=== PATIENT | female | born 1940 | race Caucasian/White ===

== ENCOUNTER 2019-12-01 18:29 | Emergency (ER) | payer MEDICARE, OTHER ==
[~2019-12-01] VITALS: Ht 154 cm; Wt 67.3 kg
[~2019-12-01 18:29] MED LIST: NITR-65 PO; ONDAN4ODT PO; PNT40TEC PO
--- NOTE | 2019-12-01 18:40 | ED Fall/Injury ---
General Chief Complaint: Trauma-Non Activation Stated Complaint: FALL - FACIAL LACERATION, LT ARM PAIN Source: patient History of Present Illness Date Seen by Provider: Dec 01, 2019 Time Seen by Provider: 18:40 Initial Comments 79-year-old female presenting after having a fall off of her porch. She had hit her face and left arm. She denies any loss of consciousness. She has no numbness or tingling. She has no change in her vision. She has a laceration to her left eyebrow and to the left palm of her hand. She has increased pain to her left arm especially in the elbow and hand. Allergies and Home Medications Allergies Coded Allergies: No Known Drug Allergies (Unverified , 02/11/13) Home Medications Hydrocodone Bit/Acetaminophen 1 Tab Tab, 1 EACH PO Q8H PRN for PAIN-SEVERE (8-10) Prescribed by: SUKHDEEP MC on 12/01/19 2204 Nitrofurantoin/Nitrofuran Mac 100 Mg Capsule, 1 EACH PO BID FOR INFECTION Prescribed by: STEPHANIE DIAZ on 02/11/13 1810 Ondansetron Hcl 4 Mg Tab, 4 MG PO Q4H FOR NAUSEA AND VOMITING Prescribed by: STEPHANIE DIAZ on 02/11/13 174 Pantoprazole Sodium 40 Mg Tablet.dr, 1 TAB PO DAILY Prescribed by: STEPHANIE DIAZ on 02/11/13 174 Patient Home Medication List Home Medication List Reviewed: Yes Review of Systems Review of Systems Constitutional: No chills, No fever Eyes: Denies Vision Changes Ears, Nose, Mouth, Throat: denies ear pain, denies ear discharge, denies nose pain, denies nose discharge, denies epistaxis, denies mouth swelling, denies loose teeth Respiratory: No cough, No short of breath Cardiovascular: No chest pain, No syncope Gastrointestinal: No nausea, No vomiting Genitourinary: No dysuria, No hematuria Musculoskeletal: joint pain (left elbow, hand) Skin: other (lacerations to left eyebrown and left hand) Psychiatric/Neurological: Headache (left face and head where she hit and has laceration) Past Xpuejxq-Wuwkvu-Relvkw Hx Past Med/Social Hx: Reviewed Nursing Past Med/Soc Hx Immunizations Up To Date Date of Pneumonia Vaccine: Apr 12, 2012 Past Medical History Respiratory: Yes Chronic Bronchitis Gastroesophageal Reflux, Diverticulosis Arthritis, Back Injury Hypothyroidsim Double Vision Physical Exam Vital Signs Vital Signs - First Documented 12/01/19 12/01/19 18:38 22:06 Temp 36.7 Pulse 86 Resp 16 B/P (MAP) 148/86 (106) Pulse Ox 91 O2 Delivery Room Air Capillary Refill : Height, Weight, BMI Height: '" Weight: lbs. oz. 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, alert, normal mood/affect, oriented x 3 Skin: normal color, warm/dry, other (laceration to left palm at base of 6th finger) Amina Coma Score Best Eye Response: (4) Open Spontaneously Best Verbal Response: (5) Oriented Best Motor Response: (6) Obeys Commands Amina Total: 15 Procedures/Interventions Wound Location: Face (left eyebrow) Wound Length (cm): 2.8 Wound's Depth, Shape: stellate, contused tissue, sub Q Wound Explored: clean Anesthesia: 1% Lidocaine (added additional lidocaine after the LET had been left in place) Volume Anesthetic (ccs): 8 Suture: Prolene Suture Size: 5-0 Number of Sutures: 8 Layer Closure?: 1 Sterile Dressing Applied?: Yes Progress After obtaining informed consent from the patient the wound was being cleaned to remove the LET numbing medicine. However the patient was complaining of pain so 1% plain lidocaine was also injected. Then the wound was scrubbed with chlorhexidine surgical soap and sterile water. The wound edges were approximated using 5-0 Prolene. A total of 8 simple interrupted stitches were placed. Patient tolerated this well without any immediate complication. Counseled on follow-up and return precautions with the stitches out in 5-7 days. Wound Location: Upper Extremities (left palm) Wound Length (cm): 2.3 Wound's Depth, Shape: flap, sub Q Wound Explored: clean Anesthesia: 1% Lidocaine Volume Anesthetic (ccs): 6 Suture: Ethlion Suture Size: 4-0 Number of Sutures: 7 Layer Closure?: 1 Sterile Dressing Applied?: Yes Progress After obtaining informed consent from the patient that her wound was anesthetized with 1% plain lidocaine. It was then scrubbed with chlorhexidine and sterile gauze. The wound edges were approximated with 4-0 Ethilon using simple interrupted stitches for a total of 7 stitches. Patient tolerated this well without any immediate complication. Counseled on follow-up and return precautions. Progress/Results/Core Measures Results/Orders My Orders Orders - SUKHDEEP MC MD Elbow 3 View Left (12/01/19 18:46) Hand 3 View Left (12/01/19 18:51) Shoulder 2 View Left (12/01/19 18:51) Ct Head/Neck Wo (12/01/19 18:51) Let Solution (Let Solution) (12/01/19 18:53) Dipht,Pertuss(Acell),Tet Adult (Boostrix (12/01/19 19:00) Lidocaine 1% Inj 20 Ml (Xylocaine 1% Inj (12/01/19 19:56) Suture Set At Bedside (12/01/19 19:56) Rx-Hydrocodone/Apap 5-325 Mg (Rx-Vicodin (12/01/19 21:45) Ice: Apply To Affected Area (12/01/19 22:05) Medications Given in ED Current Medications Medications Dose Ordered Sig/Michael Route Start Time Stop Time Status Last Admin Dose Admin Diphtheria/ Tetanus/Acell Pertussis 0.5 ml ONCE ONCE IM 12/01/19 19:00 12/01/19 19:01 DC 12/01/19 20:06 0.5 ML Vital Signs/I&O 12/01/19 12/01/19 18:38 22:06 Temp 36.7 Pulse 86 81 Resp 16 16 B/P (MAP) 148/86 (106) 126/88 Pulse Ox 91 92 O2 Delivery Room Air Progress Progress Note #1: Progress Note Obtain imaging of her left hand, elbow, shoulder. CT of the head and cervical spine. Updated her tetanus shot. Applied let to the wound on her left eyebrow. Progress Note #2: Progress Note Updated patient and family that the CT head and cervical spine did not show any acute significant abnormalities. The shoulder was intact but she does have a fracture of her left humerus and left fifth metacarpal.. The lacerations and then place her in a splint and sling for the left arm. Counseled on follow-up and return precautions. The stitches need to come out in 5-7 days on the face a nd a little over 2 weeks for the hand. Diagnostic Imaging Diagonstic Imaging: Xray Plain Films/CT/US/NM/MRI: elbow Comments NAME: ERLINDA [facility]NH [facility] REC#: [id number] PT STATUS: REG ER : 1940 PHYSICIAN: SUKHDEEP MC MD ADMIT DATE: 12/01/19/ER FS Draft Date of Exam:12/01/19 ELBOW 3 VIEW LEFT INDICATION: Fall. EXAMINATION: Three views of the left elbow were obtained. FINDINGS: There is a nondisplaced fracture through the medial humeral epicondyle. There are degenerative changes in the elbow. There appears to be an elbow joint effusion. There is no other fracture. IMPRESSION: 1. Nondisplaced transverse fracture through the medial humeral epicondyle. 2. 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 Dictated on workstation # [id number] Dict: 12/01/191912 Trans: 12/01/191914 [facility] [id number] Interpreted by: CHRISTOPHER SARMIENTO MD Electronically signed by: Diagonstic Imaging: Xray Plain Films/CT/US/NM/MRI: hand Comments [facility], [place] NAME: ERLINDA [facility]YNH [facility] REC#: [id number] PT STATUS: REG ER : 1940 PHYSICIAN: SUKHDEEP MC MD ADMIT DATE: 12/01/19/ER FS Draft Date of Exam:12/01/19 HAND 3 VIEW LEFT INDICATION: Pain after fall. EXAMINATION: Three views of the left hand were obtained. FINDINGS: Bones are osteopenic. There are degenerative changes in the wrist as well as the DIP and PIP joints. There is no fracture or dislocation. Soft tissues are unremarkable. IMPRESSION: Osteopenia and arthritic change, as described, without acute fracture. Dictated on workstation # [id number] Dict: 12/01/191913 Trans: 12/01/191915 [facility] [id number] Interpreted by: CHRISTOPHER SARMIENTO MD Electronically signed by: Christinegonstic Imaging: Xray Plain Films/CT/US/NM/MRI: other (shoulder ) Comments [facility], [place] NAME: ERLINDA [facility]YNH [facility] REC#: [id number] PT STATUS: REG ER : 1940 PHYSICIAN: SUKHDEEP MC MD ADMIT DATE: 12/01/19/ER FS Draft Date of Exam:12/01/19 SHOULDER 2 VIEW LEFT INDICATION: Pain after fall. EXAMINATION: Two views of the left shoulder were obtained. FINDINGS: Bones are osteopenic. There is arthrosis of the acromioclavicular joint. Left lung is clear. There is no fracture or dislocation. IMPRESSION: Osteopenia and degenerative change without acute fracture or dislocation. Dictated on workstation # [id number] Dict: 12/01/191918 Trans: 12/01/191920 E [id number] Interpreted by: CHRISTOPHER SARMIENTO MD Electronically signed by: Christinegonstic Imaging: CT Plain Films/CT/US/NM/MRI: c-spine, head Comments [facility], [place] NAME: ERLINDA [facility]NH [facility] REC#: [id number] PT STATUS: REG ER : 1940 PHYSICIAN: SUKHDEEP MC MD ADMIT DATE: 12/01/19/ER FS Draft Date of Exam:12/01/19 CT HEAD/NECK WO PROCEDURE: CT head and neck without contrast. TECHNIQUE: Contiguous axial images were obtained from the skull base through the vertex. Noncontrast axial images were then obtained of the soft tissue of the neck. Auto Exposure Controls were utilized during the CT exam to meet ALARA standards for radiation dose reduction. INDICATION: Fall with head and neck pain. FINDINGS: There is prominence of the ventricles and sulci. There is some chronic microvascular ischemic disease. There is no hydrocephalus. There is no midline shift. There is no mass, hemorrhage or extra-axial fluid collection. Calvarium is intact. Sinuses and mastoid air cells are clear. The alignment of the cervical spine is normal. The vertebral body heights are well maintained. There is no fracture or traumatic subluxation. There are mild degenerative changes. Prevertebral soft tissues are within normal limits. There appears to be some focal pneumonitis in the left lung apex. IMPRESSION: 1. No acute intracranial abnormality. There is atrophy and moderate chronic microvascular ischemic disease. 2. Mild cervical spondylosis without acute fracture or traumatic subluxation. 3. Findings suspect for some focal pneumonitis in the left lung apex. Dictated on workstation # [id number] Dict: 12/01/191925 Trans: 12/01/191930 [facility] [id number] Interpreted by: CHRISTOPHER SARMIENTO MD Electronically signed by: Departure Impression Primary Impression: Laceration of left eyebrow without complication Qualified Codes: S01.112A - Laceration without foreign body of left eyelid and periocular area, initial encounter Additional Impressions: Laceration of left palm without complication Qualified Codes: S61.412A - Laceration without foreign body of left hand, initial encounter Fracture of fifth metacarpal bone of left hand Qualified Codes: S62.347A - Nondisplaced fracture of base of fifth metacarpal bone, left hand, initial encounter for closed fracture Closed fracture of humerus, medial epicondyle, left Qualified Codes: S42.445A - Nondisplaced fracture (avulsion) of medial epicondyle of left humerus, initial encounter for closed fracture Fall at home Qualified Codes: W19.XXXA - Unspecified fall, initial encounter; Y92.009 - Unspecified place in unspecified non-institutional (private) residence as the place of occurrence of the external cause Disposition: 01 HOME, SELF-CARE Condition: Stable Departure-Patient Inst. Decision time for Depature: 22:00 Referrals: ALVARO HUTSON MD (PCP/Family) Primary Care Physician EFFIE CA MD Patient Instructions: Elbow Fracture (DC), Hand Fracture (DC), How to Use a Shoulder Sling, Laceration Repair With Stitches (DC), SPLINT CARE Add. Discharge Instructions: Have the stitches on face removed in 5-7 days. Stitches on hand removed in about 2 weeks. Follow up with Orthopedics about the fracture of the elbow and the left hand. Wear the splint and keep it clean, dry and elevated to help with pain and swelling Milo with Orthopedics is here at [facility], his number is [phone] You may also call Dr. Ca in [place] about follow up with him. Use ice 20-30 minutes every few hours as needed to help with pain and swelling and bruising. All discharge instructions reviewed with patient and/or family. Voiced understanding. Scripts Hydrocodone Bit/Acetaminophen (Hydrocodone/Acetaminophen 5/325mg Tablet) 1 Tab Tab 1 EACH PO Q8H PRN for PAIN-SEVERE (8-10) MDD 10 for 5 Days, #15 TAB 0 Refills Prov: SUKHDEEP MC MD 12/01/19 SUKHDEEP MC MD Dec 01, 2019 18:40
[2019-12-01] MEDS ORDERED: L.E.T. SYRINGE 5 ML TOP STA (18:53)
[2019-12-01] MEDS ORDERED: TETANUS,DIPTH,PERTUSS P/F (BOOSTRIX) 0.5 ML VIAL IM ONE (19:00)
--- NOTE | 2019-12-01 19:15 | Diagnostic Imaging Report ---
INDICATION: Fall. EXAMINATION: Three views of the left elbow were obtained. FINDINGS: There is a nondisplaced fracture through the medial humeral epicondyle. There are degenerative changes in the elbow. There appears to be an elbow joint effusion. There is no other fracture. IMPRESSION: 1. Nondisplaced transverse fracture through the medial humeral epicondyle. 2. 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 Dictated by: Dictated on workstation # [id number]
--- NOTE | 2019-12-01 19:16 | Diagnostic Imaging Report ---
INDICATION: Pain after fall. EXAMINATION: Three views of the left hand were obtained. FINDINGS: Bones are osteopenic. There are degenerative changes in the wrist as well as the DIP and PIP joints. There is no fracture or dislocation. Soft tissues are unremarkable. IMPRESSION: Osteopenia and arthritic change, as described, without acute fracture. Dictated by: Dictated on workstation # [id number]
--- NOTE | 2019-12-01 19:21 | Diagnostic Imaging Report ---
INDICATION: Pain after fall. EXAMINATION: Two views of the left shoulder were obtained. FINDINGS: Bones are osteopenic. There is arthrosis of the acromioclavicular joint. Left lung is clear. There is no fracture or dislocation. IMPRESSION: Osteopenia and degenerative change without acute fracture or dislocation. Dictated by: Dictated on workstation # [id number]
--- NOTE | 2019-12-01 19:31 | Diagnostic Imaging Report ---
PROCEDURE: CT head and neck without contrast. TECHNIQUE: Contiguous axial images were obtained from the skull base through the vertex. Noncontrast axial images were then obtained of the soft tissue of the neck. Auto Exposure Controls were utilized during the CT exam to meet ALARA standards for radiation dose reduction. INDICATION: Fall with head and neck pain. FINDINGS: There is prominence of the ventricles and sulci. There is some chronic microvascular ischemic disease. There is no hydrocephalus. There is no midline shift. There is no mass, hemorrhage or extra-axial fluid collection. Calvarium is intact. Sinuses and mastoid air cells are clear. The alignment of the cervical spine is normal. The vertebral body heights are well maintained. There is no fracture or traumatic subluxation. There are mild degenerative changes. Prevertebral soft tissues are within normal limits. There appears to be some focal pneumonitis in the left lung apex. IMPRESSION: 1. No acute intracranial abnormality. There is atrophy and moderate chronic microvascular ischemic disease. 2. Mild cervical spondylosis without acute fracture or traumatic subluxation. 3. Findings suspect for some focal pneumonitis in the left lung apex. Dictated by: Dictated on workstation # [id number]
[2019-12-01] MEDS ORDERED: LIDOCAINE 1% INJ 20 ML 20 ML VIAL INJ STA (19:56)
[2019-12-01] MEDS ORDERED: RX-HYDROCODONE/APAP 5/325 MG #4 TAB PK PO PRN (21:45)
[2019-12-01] MEDS ORDERED: ACHD5005 PO (22:04)
[2019-12-01 22:06] VITALS: BP 126/88
== END 2019-12-01 22:06 | disposition home or self-care (01) ==
LOC: EDUNIT# 18:29 → ER FS 18:31
DX: S01.112A Laceration without foreign body of left eyelid and periocular area, initial encounter (principal); S61.412A Laceration without foreign body of left hand, initial encounter; S62.347A Nondisplaced fracture of base of fifth metacarpal bone, left hand, initial encounter for closed fracture; S42.445A Nondisplaced fracture (avulsion) of medial epicondyle of left humerus, initial encounter for closed fracture; K21.9 Gastro-esophageal reflux disease without esophagitis; R40.2142 Coma scale, eyes open, spontaneous, at arrival to emergency department; R40.2252 Coma scale, best verbal response, oriented, at arrival to emergency department; R40.2362 Coma scale, best motor response, obeys commands, at arrival to emergency department; Z23 Encounter for immunization; W17.89XA Other fall from one level to another, initial encounter; Y92.009 Unspecified place in unspecified non-institutional (private) residence as the place of occurrence of the external cause
CPT/HCPCS: 29105; 70450; 70490; 73030; 73080; 73130; 90715

== ENCOUNTER → 2019-12-11 | Outpatient (CLI) | payer MEDICARE, OTHER ==
[~2019-12-11] MED LIST changes: +ACHD5005 PO
--- NOTE | 2019-12-11 15:06 | Diagnostic Imaging Report ---
EXAMINATION: Left elbow at 01:42 p.m. INDICATION: Follow-up fracture. FINDINGS: Four views are obtained. The prior exam of 12/01/2019 noted a transverse nondisplaced fracture of the medial epicondyle of the distal humerus. On this exam, the fracture line is again visualized and does not appear to have changed significantly. There is no other fracture or acute bony abnormality noted. The degenerative disease involving the elbow joint seen previously is again visualized and has not progressed; however, in the interval since the prior exam, soft tissue edema has developed along the posterior aspect of the proximal ulna. There also continues to be elevation of both the anterior and posterior fat pads of the elbow joint signifying that there is fluid/hemorrhage within the joint. IMPRESSION: 1. The nondisplaced fracture of the medial epicondyle seen previously is again evident and not significantly changed. There is no acute bony abnormality identified. 2. However, soft tissue edema has developed along the posterior aspect of the proximal ulna since the prior study. Dictated by: Dictated on workstation # [id number]
== END ==
LOC: RAD FS 13:19
PROVIDERS: ATTEND Nurse Practitioner
DX: S42.445D Nondisplaced fracture (avulsion) of medial epicondyle of left humerus, subsequent encounter for fracture with routine healing (principal); S42.415D Nondisplaced simple supracondylar fracture without intercondylar fracture of left humerus, subsequent encounter for fracture with routine healing
CPT/HCPCS: 73080

== ENCOUNTER → 2019-12-24 | Outpatient (CLI) | payer MEDICARE, OTHER ==
--- NOTE | 2019-12-24 09:38 | Diagnostic Imaging Report ---
INDICATION: Left elbow fracture. TECHNIQUE: AP, oblique, and lateral views of the left elbow were obtained. FINDINGS: An overlying cast is in place. The distal humeral fracture appears in anatomic alignment. Underlying degenerative changes of the elbow joint are noted. IMPRESSION: Well aligned distal humeral fracture with cast in place. Underlying degenerative findings. Dictated by: Dictated on workstation # [id number]
--- NOTE | 2019-12-24 10:33 | Diagnostic Imaging Report ---
INDICATION: 5th metacarpal fracture. AP, oblique, and lateral views of left hand are obtained and compared to 12/01/2019. FINDINGS: Overlying cast is in place. There is a fracture of the base of 5th metacarpal which is in good alignment. There are diffuse degenerative findings throughout the interphalangeal joints. IMPRESSION: Diffuse degenerative findings. Well aligned fracture base of 5th metacarpal with overlying cast in place. Dictated by: Dictated on workstation # [id number]
== END ==
LOC: RAD 08:55
PROVIDERS: ATTEND Nurse Practitioner
DX: S42.415D Nondisplaced simple supracondylar fracture without intercondylar fracture of left humerus, subsequent encounter for fracture with routine healing (principal); S62.347D Nondisplaced fracture of base of fifth metacarpal bone, left hand, subsequent encounter for fracture with routine healing
CPT/HCPCS: 73080; 73130

== ENCOUNTER → 2020-01-07 | Outpatient (CLI) | payer MEDICARE, OTHER ==
--- NOTE | 2020-01-07 12:06 | Diagnostic Imaging Report ---
INDICATION: Followup left elbow fracture. TIME OF EXAM: 9:58 AM Correlation is made with prior left elbow radiograph from 12/24/2019. The fiberglass cast has been removed. A transversely oriented lucency through the distal humerus is again noted consistent with a fracture line. Overall alignment is anatomic. The proximal radius and ulna appear to be intact. IMPRESSION: Distal humerus fracture. Fracture line remains clearly visible. Alignment is anatomic. Dictated by: Dictated on workstation # [id number]
--- NOTE | 2020-01-07 12:06 | Diagnostic Imaging Report ---
EXAMINATION: Left hand radiographs, 3 views COMPARISON: December 24, 2019. HISTORY: 79-year-old female, followup left hand fracture. FINDINGS: The previously noted fracture involving the base of the fifth metacarpal is not well seen likely relating to interval healing response. There is no identified offset of the articulating surface. There is moderate joint space loss of the first carpometacarpal joint. There is moderate joint space loss of the third metacarpophalangeal joint. There is mild to moderate osteoarthritis of the second and third distal interphalangeal joints. There is no identified bone erosion. Bone alignment is unremarkable. There is soft tissue swelling in the region of the metacarpophalangeal joints dorsally. IMPRESSION: 1. Healing response at site of prior fracture with significantly less visible fracture line. No identified offset of the articulating surface. 2. Multifocal arthritis as described above. Dictated by: Dictated on workstation # [id number]
== END ==
LOC: RAD FS 09:47
PROVIDERS: ATTEND Nurse Practitioner
DX: S62.347D Nondisplaced fracture of base of fifth metacarpal bone, left hand, subsequent encounter for fracture with routine healing (principal); S42.415D Nondisplaced simple supracondylar fracture without intercondylar fracture of left humerus, subsequent encounter for fracture with routine healing; M19.072 Primary osteoarthritis, left ankle and foot
CPT/HCPCS: 73080; 73130

== ENCOUNTER → 2020-01-21 | Outpatient (CLI) | payer MEDICARE, OTHER ==
--- NOTE | 2020-01-21 13:37 | Diagnostic Imaging Report ---
INDICATION: Followup fracture left hand. TIME OF EXAM: 1:25 PM Comparison is made with prior radiographs from 01/07/2020. Generalized demineralization is noted. A fracture previously noted at the base of the fifth metacarpal not well seen on today's study consistent with healing. Overall alignment is anatomic. No acute fracture is seen. Significant degenerative changes at the 1st CMC joint and triscaphe joint are again noted. There is interphalangeal joint degenerative change involving multiple phalanges. IMPRESSION: Chronic changes. There is a healed fracture of the proximal 5th metacarpal. No residual fracture line is seen. Alignment is anatomic. Dictated by: Dictated on workstation # [id number]
--- NOTE | 2020-01-21 13:39 | Diagnostic Imaging Report ---
INDICATION: Elbow fracture. TECHNIQUE/COMPARISON: AP, oblique, and lateral views of the left elbow were obtained with comparison made to the study of 01/07/2020. FINDINGS: There is mild increasing sclerosis about the distal humeral fracture line. Advanced degenerative findings are also present at the elbow joint with marginal spurring and possible mild irregularity of the radial head which may be related to a healing fracture as well. Otherwise, no significant change is detected. IMPRESSION: The supracondylar humeral fracture line remains visible with increasing sclerosis indicating partial healing. Irregularity of the radial head appears degenerative in nature although a healing nondisplaced fracture of the radial head is not excluded. Dictated by: Dictated on workstation # [id number]
== END ==
LOC: RAD FS 13:09
PROVIDERS: ATTEND Nurse Practitioner
DX: S42.415D Nondisplaced simple supracondylar fracture without intercondylar fracture of left humerus, subsequent encounter for fracture with routine healing (principal); S62.397D Other fracture of fifth metacarpal bone, left hand, subsequent encounter for fracture with routine healing
CPT/HCPCS: 73080; 73130

== ENCOUNTER → 2020-02-11 | Outpatient (CLI) | payer MEDICARE, OTHER ==
--- NOTE | 2020-02-11 09:24 | Diagnostic Imaging Report ---
INDICATION: Fracture for follow-up. Compared with radiograph 01/19/2020 FINDINGS: There has been resolution of joint effusion and pathologically displaced fat pads. Further new bone formation associated with healed supracondylar distal humeral fracture present. The humeral capitellar and radiocapitellar relationship stable. New bone formation about the irregular radial head has also occurred. No new fracture. No adverse development. IMPRESSION: Healed or healing distal humeral and proximal radial fractures in stable alignment. Resolution of joint effusion. No adverse development. There is background severe underlying osteoarthritis. Dictated by: Dictated on workstation # [id number]
== END ==
LOC: RAD FS 08:36
PROVIDERS: ATTEND Nurse Practitioner
DX: S42.415D Nondisplaced simple supracondylar fracture without intercondylar fracture of left humerus, subsequent encounter for fracture with routine healing (principal); X58.XXXD Exposure to other specified factors, subsequent encounter; M19.022 Primary osteoarthritis, left elbow
CPT/HCPCS: 73080

== ENCOUNTER 2020-04-20 16:37 | Emergency (ER) | payer MEDICARE, OTHER ==
[~2020-04-20] VITALS: Ht 154.9 cm; Wt 66.8 kg
--- NOTE | 2020-04-20 17:35 | ED General ---
General Chief Complaint: Oral/Throat Problems Stated Complaint: THINKS SHES BEEN EXPOSED TO COVID 19 Nursing Triage Note: Patient's son lost his voice 2-3 weeks ago, son tested for Covid-19 two weeks ago and received negative result. Patient's son states he was exposed to the of a positive case for 15 minutes two days ago. Son states he was 12 feet away from the positive case for 3 minutes. Son denies any change in his symptoms from yesterday. Patient denies any symptoms or positive contacts. Nursing Sepsis Screen: No Definite Risk History of Present Illness Date Seen by Provider: Apr 20, 2020 Time Seen by Provider: 17:34 Initial Comments Pt presents with exposure to COVID. Son was exposed to a friend who has COVID. Patient herself is not having any symptoms, no cough, no fever. Just wants to get tested. Allergies and Home Medications Allergies Coded Allergies: No Known Drug Allergies (Unverified , 02/11/13) Home Medications Hydrocodone Bit/Acetaminophen 1 Tab Tab, 1 EACH PO Q8H PRN for PAIN-SEVERE (8- 10) Prescribed by: SUKHDEEP CM on 12/01/194 Nitrofurantoin/Nitrofuran Mac 100 Mg Capsule, 1 EACH PO BID FOR INFECTION Prescribed by: STEPHANIE DIAZ on 02/11/13 1810 Ondansetron Hcl 4 Mg Tab, 4 MG PO Q4H FOR NAUSEA AND VOMITING Prescribed by: STEPHANIE DIAZ on 02/11/13 1748 Pantoprazole Sodium 40 Mg Tablet.dr, 1 TAB PO DAILY Prescribed by: STEPHANIE DIAZ on 02/11/13 1748 Patient Home Medication List Home Medication List Reviewed: Yes Review of Systems Review of Systems Constitutional: no symptoms reported EENTM: no symptoms reported Respiratory: no symptoms reported Cardiovascular: no symptoms reported Gastrointestinal: no symptoms reported Skin: no symptoms reported Psychiatric/Neurological: No Symptoms Reported Past Umvnbov-Sktyww-Pkjpmp Hx Patient Social History Alcohol Use: Denies Use Recreational Drug Use: No Smoking Status: Never a Smoker 2nd Hand Smoke Exposure: No Recent Foreign Travel: No Contact w/Someone Who Travel: No Recent Infectious Disease Expo: No Physical Abuse: No Sexual Abuse: No Mistreated: No Fear: No Immunizations Up To Date Date of Pneumonia Vaccine: Apr 12, 2012 Past Medical History Surgeries: Yes (EGD/COLONOSCOPY) Respiratory: Yes Chronic Bronchitis Cardiac: Yes Hypertension Neurological: No Genitourinary: No Gastrointestinal: Yes Gastroesophageal Reflux, Diverticulosis Musculoskeletal: Yes Arthritis, Back Injury Endocrine: Yes Hypothyroidsim Double Vision Cancer: No Psychosocial: No Integumentary: No Blood Disorders: No Physical Exam Vital Signs Vital Signs - First Documented 04/20/20 17:00 Temp 36.8 Pulse 90 Resp 18 B/P (MAP) 143/75 (97) Pulse Ox 92 O2 Delivery Room Air Capillary Refill : Less Than 3 Seconds Height, Weight, BMI Height: '" Weight: lbs. oz. kg; 27.00 BMI Method: General Appearance: No Apparent Distress, WD/WN HEENT: Moist Mucous Membranes Neck: Supple Respiratory: No Respiratory Distress Extremity: Normal Inspection Neurologic/Psychiatric: Alert, Oriented x3 Procedures/Interventions Suture Size: 4-0 Progress/Results/Core Measures Suspected Sepsis Recent Fever Within 48 Hours: No Infection Criteria Present: None New/Unexplained Altered Menta: No Sepsis Screen: No Definite Risk SIRS Temperature: Pulse: 90 Respiratory Rate: 18 Blood Pressure 143 /75 Mean: 97 Results/Orders My Orders Orders - PAULA ISSA MD Coronavirus Sars-Cov-2 So 2018 (04/20/20 17:00) Vital Signs/I&O 04/20/20 17:00 Temp 36.8 Pulse 90 Resp 18 B/P (MAP) 143/75 (97) Pulse Ox 92 O2 Delivery Room Air Capillary Refill : Less Than 3 Seconds Blood Pressure Mean: 97 Departure Impression Primary Impression: Exposure to SARS-associated coronavirus Disposition: 01 HOME, SELF-CARE Condition: Stable Departure-Patient Inst. Referrals: ALVARO HUTSON MD (PCP/Family) Primary Care Physician Patient Instructions: Coronavirus Disease 2019 (COVID-19) Tests Add. Discharge Instructions: All discharge instructions reviewed with patient and/or family. Voiced understanding. PAULA ISSA MD Apr 20, 2020 17:34
--- OUTSIDE RECORDS SUMMARY | 2020-04-20 17:35 | XMS REPORT | Continuity of Care Document ---
Author Organization Unknown Address Unknown Phone Unavailable Allergies Active Description Code Type Severity Reaction Onset Reported/Identified Relationship to Patient Clinical Status Yes No Known Drug Allergies [id number] Drug Allergy Unknown N/A 02/11/2013 Medications There is no data. Problems Date Dx Coded Attending Type Code Diagnosis Diagnosed By 12/01/2019 JESUSITA BRAVO, SUKHDEEP Thomas Ot K21.9 GASTRO-ESOPHAGEAL REFLUX DISEASE WITHOUT 12/01/2019 JESUSITA BRAVO, SUKHDEEP Thomas Ot M79.6 02 PAIN IN LEFT ARM 12/01/2019 SUKHDEEP MC MD, Ot R40.2142 COMA SCALE, EYES OPEN, SPONTANEOUS, EMR 12/01/2019 SUKHDEEP MC MD, Ot R40.2252 COMA SCALE, BEST VERBAL RESPONSE, ORIENT 12/01/2019 SUKHDEEP MC MD, Ot R40.2362 COMA SCALE, BEST MOTOR RESPONSE, OBEYS C 12/01/2019 SUKHDEEP MC MD Ot S01.112A LACERATION W/O FB OF LEFT EYELID AND PER 12/01/2019 SUKHDEEP MC MD Ot S42.445A NONDISP FX OF MEDIAL EPICONDYLE OF L HUM 12/01/2019 SUKHDEEP MC MD Ot S61.412A LACERATION WITHOUT FOREIGN BODY OF LEFT 12/01/2019 SUKHDEEP MC MD Ot S62.347A NONDISP FX OF BASE OF FIFTH METACARPAL B 12/01/2019 SUKHDEEP MC MD Ot W17.89XA OTHER FALL FROM ONE LEVEL TO ANOTHER, IN 12/01/2019 SUKHDEEP MC MD, Ot Y92.[address] [facility] 12/01/2019 SUKHDEEP MC MD, Ot Z23 ENCOUNTER FOR IMMUNIZATION 12/13/2019 JAYSON NG Ot S42.415D NONDISP SIMP SUPRCNDL FX W/O INTRCNDL FX 12/13/2019 JAYSON NG Ot S42.445D NONDISP FX OF MED EPICONDYL OF L HUMER, 01/03/2020 JAYSON NG Ot S42.415D NONDISP SIMP SUPRCNDL FX W/O INTRCNDL FX 01/03/2020 JAYSON NG Ot S42.445D NONDISP FX OF MED EPICONDYL OF L HUMER, 01/09/2020 JAYSON NG Ot M19.072 PRIMARY OSTEOARTHRITIS, LEFT ANKLE AND F 01/09/2020 JAYSON NG Ot S42.415D NONDISP SIMP SUPRCNDL FX W/O INTRCNDL FX 01/09/2020 JAYSON NG Ot S62.347D NONDISP FX OF BASE OF FIFTH METACARPAL B 01/09/2020 JAYSON NG Ot S42.415D NONDISP SIMP SUPRCNDL FX W/O INTRCNDL FX 01/09/2020 JAYSON NG Ot S42.445D NONDISP FX OF MED EPICONDYL OF L HUMER, 01/16/2020 Ot S42.415D N ONDISP SIMP SUPRCNDL FX W/O INTRCNDL FX 01/16/2020 Ot S62.347D N ONDISP FX OF BASE OF FIFTH METACARPAL B 01/23/2020 JAYSON NG Ot S42.415D NONDISP SIMP SUPRCNDL FX W/O INTRCNDL FX 01/23/2020 JAYSON NG Ot S62.397D OTH FX FIFTH [facility] BONE, LEFT HAND, SUBS FO 01/30/2020 JAYSON NG Ot M19.072 PRIMARY OSTEOARTHRITIS, LEFT ANKLE AND F 01/30/2020 JAYSON NG Ot S42.415D NONDISP SIMP SUPRCNDL FX W/O INTRCNDL FX 01/30/2020 JAYSON NG Ot S62.347D NONDISP FX OF BASE OF FIFTH METACARPAL B 02/12/2020 JAYSON NG Ot S42.415D NONDISP SIMP SUPRCNDL FX W/O INTRCNDL FX 02/12/2020 JAYSON NG Ot S62.397D OTH FX [facility] BONE, LEFT HAND, SUBS FO 02/12/2020 KING JAYSON SOSA Ot M19.022 PRIMARY OSTEOARTHRITIS, LEFT ELBOW 02/12/2020 JAYSON NG Ot S42.415D NONDISP SIMP SUPRCNDL FX W/O INTRCNDL FX 02/12/2020 BERENICEJAYSON Ot X58.XXXD EXPOSURE TO OTHER SPECIFIED FACTORS, SUB 02/13/2020 BERENICEJAYSON Ot M19.022 PRIMARY OSTEOARTHRITIS, LEFT ELBOW 02/13/2020 BERENICEJAYSON Ot S42.415D NONDISP SIMP SUPRCNDL FX W/O INTRCNDL FX 02/13/2020 BERENICEJAYSON Ot X58.XXXD EXPOSURE TO OTHER SPECIFIED FACTORS, SUB 02/18/2020 JAYSON NG Ot M19.022 PRIMARY OSTEOARTHRITIS, LEFT ELBOW 02/18/2020 BERENICEJAYSON Ot S42.415D NONDISP SIMP SUPRCNDL FX W/O INTRCNDL FX 02/18/2020 JAYSON NG Ot X58.XXXD EXPOSURE TO OTHER SPECIFIED FACTORS, SUB 02/19/2020 BERENICEJAYSON Ot M19.072 PRIMARY OSTEOARTHRITIS, LEFT ANKLE AND F 02/19/2020 JAYSON NG Ot S42.415D NONDISP SIMP SUPRCNDL FX W/O INTRCNDL FX 02/19/2020 BERNEICEJAYSON Ot S62.347D NONDISP FX OF BASE OF FIFTH METACARPAL B Procedures There is no data. Results There is no data. Encounters ACCT No. Visit Date/Time Discharge Status Pt. Type Provider Facility Loc./Unit Complaint [id number] 09/09/2019 10:10:00 09/09/2019 23:59: 59 [facility] [id number] 02/11/2020 08:36:00 23:59:59 CLS Outpatient JAYSON NG [facility] RAD FS L HUMERUS FX [id number] 01/21/2020 13:09:00 23:59:59 CLS Outpatient JAYSON NG [facility] RAD FS NONDISPLACED SUPRACONDY LAR FX W/O INTERCONDYLAR FX [id number] 01/07/2020 09:47:00 23:59:59 CLS Outpatient JAYSON NG [facility] RAD FS FRACTURE W/O INTERCONDY LAR [id number] 12/11/2019 13:19:00 23:59:59 CLS Outpatient JAYSON NG [facility] RAD FS S42.415A [id number] 12/01/2019 18:31:00 020 22:06:00 DIS Emergency JESUSITA BRAVO, SUKHDEEP Thomas [facility] ER FS FALL - FACIAL LACERATIO N, LT ARM PAIN [id number] 02/11/2013 16:00:00 013 18:32:00 DIS Emergency [id number] 12/24/2019 08:55:00 Document Registration
[2020-04-20 17:45] VITALS: BP 143/75
== END 2020-04-20 17:45 | disposition home or self-care (01) ==
LOC: EDUNIT# 16:37 → ER FS 16:38
DX: Z20.828 Contact with and (suspected) exposure to other viral communicable diseases (principal); I10 Essential (primary) hypertension; K21.9 Gastro-esophageal reflux disease without esophagitis
CPT/HCPCS: 99282; U0002; 87635

== ENCOUNTER 2021-10-01 18:29 | Emergency (ER) | payer MEDICARE, OTHER ==
[~2021-10-01] VITALS: Ht 167 cm; Wt 71.6 kg
--- NOTE | 2021-10-01 18:59 | ED GI ---
General Stated Complaint: N/V/D Source of Information: Patient Exam Limitations: No Limitations History of Present Illness Date Seen by Provider: Oct 01, 2021 Time Seen by Provider: 18:30 Initial Comments 81yoF with PMH of arthritis coming in due to an episode of vomiting that was NB/NB and nonbloody diarrhea last night going into this morning. Went out to eat pizza prior to this. She did see some red chunks in her vomit which looks exactly like the red Jell-O she had eaten prior. Has had decreased PO today. No pain anywhere including in her abdomen. Denies fever, chills, weakness, numbness, chest pain, SOB, or any other concerns. Has been taking care of a child that does have influenza B. Denies any prior history of GI bleeds, does not take NSAIDs, no blood thinners, does not drink alcohol, no history of liver disease. Has been normal since this morning. Allergies and Home Medications Allergies Coded Allergies: No Known Drug Allergies (Unverified , 02/11/13) Patient Home Medication List Home Medication List Reviewed: Yes Hydrocodone Bit/Acetaminophen (Lortab 5 Mg Tablet) 1 Tab Tab, 1 EACH PO Q8H PRN for PAIN-SEVERE (8-10) Prescribed by: SUKHDEEP MC on 12/01/192203 Nitrofurantoin/Nitrofuran Mac (Macrobid) 100 Mg Capsule, 1 EACH PO BID Prescribed by: STEPHANIE DIAZ on 02/11/13 181 Ondansetron Hcl (Zofran Oral Dissolve) 4 Mg Tab, 4 MG PO Q4H Prescribed by: STEPHANIE DIAZ on 02/11/13 174 Pantoprazole Sodium (Protonix) 40 Mg Tablet.dr, 1 TAB PO DAILY Prescribed by: STEPHANIE DIAZ on 02/11/13 1748 Review of Systems Review of Systems Constitutional: No chills, No fever EENTM: No Blurred Vision Respiratory: Denies Cough, Denies Shortness of Air Cardiovascular: Denies Chest Pain Gastrointestinal: Denies Abdominal Pain; Diarrhea, Vomiting Genitourinary: Denies Burning Musculoskeletal: no symptoms reported Skin: no symptoms reported Psychiatric/Neurological: No Symptoms Reported Endocrine: No Symptoms Reported Hematologic/Lymphatic: No Symptoms Reported All Other Systems Reviewed Negative Unless Noted: Yes Past Urdelyl-Lxlfxp-Goalmn Hx Patient Social History Tobacco Use?: No Past Medical History Surgeries: Yes (EGD/COLONOSCOPY) Respiratory: Yes Chronic Bronchitis Cardiac: Yes Hypertension Neurological: No Genitourinary: No Gastrointestinal: Yes Gastroesophageal Reflux, Diverticulosis Musculoskeletal: Yes Arthritis, Back Injury Endocrine: Yes Hypothyroidsim Double Vision Cancer: No Psychosocial: No Integumentary: No Blood Disorders: No Physical Exam Vital Signs Vital Signs - First Documented 10/01/21 18:44 Temp 37.8 Pulse 103 Resp 17 B/P (MAP) 167/84 (111) Pulse Ox 96 O2 Delivery Room Air Capillary Refill : Height/Weight/BMI Height: '" Weight: lbs. oz. kg; 27.00 BMI Method: General Appearance: WD/WN, no apparent distress HEENT: PERRL/EOMI, normal ENT inspection, pharynx normal Neck: non-tender, full range of motion, supple, normal inspection Respiratory: chest non-tender, lungs clear, normal breath sounds, no respiratory distress, no accessory muscle use Cardiovascular: regular rate, rhythm, no edema, no murmur Gastrointestinal: normal bowel sounds, non tender, soft; No distended, No guarding, No rebound Extremities: normal range of motion, non-tender, normal inspection, no pedal edema, no calf tenderness, normal capillary refill Back: normal inspection, no CVA tenderness, no vertebral tenderness Neurologic/Psychiatric: no motor/sensory deficits, alert, normal mood/affect Skin: normal color, warm/dry Lymphatic: no adenopathy Procedures/Interventions Suture Size: 4-0 Progress/Results/Core Measures Results/Orders Lab Results Laboratory Tests Test 10/01/21 19:15 10/01/21 19:18 Range/Units White Blood Count 5.2 4.3-11.0 10^3/uL Red Blood Count 4.74 3.80-5.11 10^6/uL Hemoglobin 14.7 11.5-16.0 g/dL Hematocrit 44 35-52 % Mean Corpuscular Volume 92 80-99 fL Mean Corpuscular Hemoglobin 31 25-34 pg Mean Corpuscular Hemoglobin Concent 34 32-36 g/dL Red Cell Distribution Width 12.2 10.0-14.5 % Platelet Count 196 130-400 10^3/uL Mean Platelet Volume 10.2 9.0-12.2 fL Neutrophils (%) (Auto) 81 H 42-75 % Lymphocytes (%) (Auto) 11 L 12-44 % Monocytes (%) (Auto) 7 0-12 % Eosinophils (%) (Auto) 1 0-10 % Basophils (%) (Auto) 0 0-10 % Neutrophils # (Auto) 4.2 1.8-7.8 X 10^3 Lymphocytes # (Auto) 0.6 L 1.0-4.0 X 10^3 Monocytes # (Auto) 0.4 0.0-1.0 X 10^3 Eosinophils # (Auto) 0.0 0.0-0.3 10^3/uL Basophils # (Auto) 0.0 0.0-0.1 10^3/uL Prothrombin Time 12.9 12.2-14.7 SEC INR Comment 0.9 0.8-1.4 Activated Partial Thromboplast Time 26 24-35 SEC Sodium Level 135 135-145 MMOL/L Potassium Level 4.2 3.6-5.0 MMOL/L Chloride Level 101 98-107 MMOL/L Carbon Dioxide Level 21 21-32 MMOL/L Anion Gap 13 5-14 MMOL/L Blood Urea Nitrogen 13 7-18 MG/DL Creatinine 0.82 0.60-1.30 MG/DL Estimat Glomerular Filtration Rate 67 BUN/Creatinine Ratio 16 Glucose Level 172 H 70-105 MG/DL Calcium Level 8.6 8.5-10.1 MG/DL Corrected Calcium 8.8 8.5-10.1 MG/DL Total Bilirubin 0.6 0.1-1.0 MG/DL Aspartate Amino Transf (AST/SGOT) 24 5-34 U/L Alanine Aminotransferase (ALT/SGPT) 13 0-55 U/L Alkaline Phosphatase 112 40-136 U/L Total Protein 7.1 6.4-8.2 GM/DL Albumin 3.8 3.2-4.5 GM/DL Lipase 16 8-78 U/L Influenza Type A Antigen NEGATIVE NEGATIVE Influenza Type B Antigen NEGATIVE NEGATIVE My Orders Orders - DOMINICK ESPANA MD Cbc With Automated Diff (10/01/21 19:07) Comprehensive Metabolic Panel (10/01/21 19:07) Lipase (10/01/21 19:07) Protime With Inr (10/01/21 19:07) Partial Thromboplastin Time (12/23/21 19:07) Influenza A & B Antigens (10/01/21 19:07) Lactated Ringers (Lr 1000 Ml Iv Solution (10/01/21 19:07) Pantoprazole Injection (Protonix Injecti (10/01/21 19:15) Medications Given in ED Current Medications Medications Dose Ordered Sig/Michael Route Start Time Stop Time Status Last Admin Dose Admin Pantoprazole 40 mg ONCE ONCE IV 10/01/21 19:15 10/01/21 19:16 DC 10/01/21 19:25 40 MG Vital Signs/I&O 10/01/21 18:44 Temp 37.8 Pulse 103 Resp 17 B/P (MAP) 167/84 (111) Pulse Ox 96 O2 Delivery Room Air Progress Progress Note : Progress Note 81-year-old female with above history coming in due to multiple episodes of vomiting and diarrhea. ABCs were intact and vitals were stable on presentation. Physical exam reassuring including a soft and nontender abdomen. She has no red flags for serious upper GI bleed. It does sound like the red that was in her vomit truly looks like the food that she ate and the rest of the vomit was not red or bloody. She also has not had any blood in her stools. She has not any vomiting and almost 16 hours and is well-appearing. An IV was placed and basic labs were obtained including normal electrolytes, normal kidney function, normal hemoglobin. She is given a 500 cc bolus of IV fluids given the vomiting with decreased p.o. intake today and IV Protonix. She continues to look well. I believe she likely has a short lasting GI bug which has passed. Flu test was negative. I believe she is stable for discharge with outpatient follow-up. She was sent home with strict return precautions. At the time of discharge she is completely at her baseline with no symptoms. Departure Impression Primary Impression: Vomiting and diarrhea Disposition: 01 HOME, SELF-CARE Condition: Stable Departure-Patient Inst. Referrals: ALVARO HUTSON MD (PCP/Family) Primary Care Physician Patient Instructions: Diarrhea, Adult ED, Nausea and Vomiting, Adult ED Add. Discharge Instructions: You are seen in the emergency department for vomiting and diarrhea. We did give you some fluids and an antacid. Your labs look good including normal electrolytes, your kidneys look good, and your blood counts otherwise look good. If you begin vomiting any blood or having bloody diarrhea then please call your doctor or come to the ER. Otherwise, you likely have a virus that is going around [place] currently and typically these have been passing within a day or 2. Your flu test was negative. DOMINICK ESPANA MD Oct 01, 2021 18:59
[2021-10-01] MEDS ORDERED: LACTATED RINGERS 1,000 ML IV STA (19:07)
[2021-10-01] MEDS ORDERED: PANTOPRAZOLE 40 MG (PROTONIX) VIAL IV ONE (19:15)
[2021-10-01 19:43] LABS: HEMATOCRIT 44 % (35-52); HEMOGLOBIN 14.7 g/dL (11.5-16.0); MEAN CORPUSCULAR HEMOGLOBIN 31 pg (25-34); MEAN CORPUSCULAR HGB CONC 34 g/dL (32-36); MEAN CORPUSCULAR VOLUME 92 fL (80-99); WHITE BLOOD COUNT 5.2 10^3/uL (4.3-11.0)
[2021-10-01 19:44] LABS: BASOPHILS % (AUTO) 0 % (0-10); EOSINOPHILS % (AUTO) 1 % (0-10); LYMPHOCYTES # (AUTO) 0.6 X 10^3 (1.0-4.0); LYMPHOCYTES % (AUTO) 11 % (12-44); MEAN PLATELET VOLUME 10.2 fL (9.0-12.2); MONOCYTES # (AUTO) 0.4 X 10^3 (0.0-1.0); MONOCYTES % (AUTO) 7 % (0-12); NEUTROPHILS # (AUTO) 4.2 X 10^3 (1.8-7.8); NEUTROPHILS % (AUTO) 81 % (42-75); PLATELET COUNT 196 10^3/uL (130-400)
[2021-10-01 19:45] LABS: INR 0.9 (0.8-1.4); PROTHROMBIN TIME PATIENT 12.9 SEC (12.2-14.7)
[2021-10-01 19:55] LABS: BILIRUBIN,TOTAL 0.6 MG/DL (0.1-1.0); CALCIUM 8.6 MG/DL (8.5-10.1); CREATININE SERUM 0.82 MG/DL (0.60-1.30); TOTAL PROTEIN 7.1 GM/DL (6.4-8.2)
[2021-10-01 19:56] LABS: ALBUMIN 3.8 GM/DL (3.2-4.5); POTASSIUM 4.2 MMOL/L (3.6-5.0)
[2021-10-01 20:15] VITALS: BP 125/55
== END 2021-10-01 20:15 | disposition home or self-care (01) ==
LOC: EDUNIT# 18:29 → ER FS 18:32
DX: R11.10 Vomiting, unspecified (principal); R19.7 Diarrhea, unspecified; I10 Essential (primary) hypertension; K21.9 Gastro-esophageal reflux disease without esophagitis; Z79.899 Other long term (current) drug therapy
CPT/HCPCS: 36415; 80053; 83690; 85025; 85610; 85730; 87804

== ENCOUNTER 2021-10-26 13:23 | Emergency (ER) | payer MEDICARE, OTHER ==
[~2021-10-26] VITALS: Ht 165.9 cm; Wt 68.9 kg
--- NOTE | 2021-10-26 13:47 | ED Cough/URI ---
General Chief Complaint: COVID19 Suspect/Confirmed Stated Complaint: COVID+; COUGH Source: patient Exam Limitations: no limitations History of Present Illness Date Seen by Provider: Oct 26, 2021 Time Seen by Provider: 13:27 Initial Comments 81-year-old female with past medical history of hypertension and hypothyroidism coming in due to continued cough and congestion. She said symptom started the end of September. She had a positive COVID test on October 15 and another positive on October 18. Has had continued cough and congestion which she continues to take DayQuil for. Denies really feeling short of breath, but says her nose gets too congested when she lays backwards and it makes it hard to breathe. Otherwise denying any chest pain, current shortness of breath, abdominal pain, nausea, vomiting, diarrhea, fever, chills, weakness, numbness, dysuria, rash, or any other concerns Allergies and Home Medications Allergies Coded Allergies: No Known Drug Allergies (Unverified , 02/11/13) Patient Home Medication List Home Medication List Reviewed: Yes Hydrocodone Bit/Acetaminophen (Lortab 5 Mg Tablet) 1 Tab Tab, 1 EACH PO Q8H PRN for PAIN-SEVERE (8-10) Prescribed by: SUKHDEEP MC on 12/01/192203 Nitrofurantoin/Nitrofuran Mac (Macrobid) 100 Mg Capsule, 1 EACH PO BID Prescribed by: STEPHANIE DIAZ on 02/11/131809 Ondansetron Hcl (Zofran Oral Dissolve) 4 Mg Tab, 4 MG PO Q4H Prescribed by: STEPHANIE DIAZ on 02/11/131747 Pantoprazole Sodium (Protonix) 40 Mg Tablet.dr, 1 TAB PO DAILY Prescribed by: STEPHANIE DIAZ on 02/11/13 174 Review of Systems Review of Systems Constitutional: No chills, No fever EENTM: nose congestion; No blurred vision Respiratory: cough, short of breath Cardiovascular: No chest pain Gastrointestinal: No abdominal pain, No diarrhea, No nausea, No vomiting Genitourinary: no symptoms reported Musculoskeletal: no symptoms reported Skin: no symptoms reported Psychiatric/Neurological: No Symptoms Reported Hematologic/Lymphatic: No Symptoms Reported Immunological/Allergic: no symptoms reported All Other Systems Reviewed Negative Unless Noted: Yes Past Kigxeju-Jkcicw-Lpufpq Hx Immunizations Up To Date Second COVID19 Vaccination Wale: Moderna Past Medical History Surgeries: Yes (EGD/COLONOSCOPY) Respiratory: Yes Chronic Bronchitis Cardiac: Yes Hypertension Neurological: No Genitourinary: No Gastrointestinal: Yes Gastroesophageal Reflux, Diverticulosis Musculoskeletal: Yes Arthritis, Back Injury Endocrine: Yes Hypothyroidsim Double Vision Cancer: No Psychosocial: No Integumentary: No Blood Disorders: No Physical Exam Capillary Refill : Height: '" Weight: lbs. oz. kg; 25.00 BMI Method: General Appearance: WD/WN, no apparent distress Eyes: Bilateral Eye Normal Inspection HEENT: PERRL/EOMI, normal ENT inspection, pharynx normal Neck: non-tender, full range of motion, supple, normal inspection Respiratory: chest non-tender, lungs clear, normal breath sounds, no respiratory distress, no accessory muscle use Cardiovascular: regular rate, rhythm, no edema, no murmur Gastrointestinal: normal bowel sounds, non tender, soft; No distended, No guarding, No rebound Extremities: normal range of motion, non-tender, normal inspection, no pedal edema, no calf tenderness, normal capillary refill Neurologic/Psychiatric: no motor/sensory deficits, alert, normal mood/affect Skin: normal color, warm/dry Lymphatic: no adenopathy Procedures/Interventions Suture Size: 4-0 Progress/Results/Core Measures Suspected Sepsis SIRS Temperature: Pulse: Respiratory Rate: Laboratory Tests 10/26/21 13:50: White Blood Count 8.0 Blood Pressure / Mean: Laboratory Tests 10/26/21 13:50: Creatinine 0.78, Platelet Count 244, Total Bilirubin 0.4 Results/Orders Lab Results Laboratory Tests Test 10/26/21 13:50 Range/Units White Blood Count 8.0 4.3-11.0 10^3/uL Red Blood Count 4.90 3.80-5.11 10^6/uL Hemoglobin 15.0 11.5-16.0 g/dL Hematocrit 44 35-52 % Mean Corpuscular Volume 91 80-99 fL Mean Corpuscular Hemoglobin 31 25-34 pg Mean Corpuscular Hemoglobin Concent 34 32-36 g/dL Red Cell Distribution Width 12.0 10.0-14.5 % Platelet Count 244 130-400 10^3/uL Mean Platelet Volume 10.1 9.0-12.2 fL Immature Granulocyte % (Auto) 1 % Neutrophils (%) (Auto) 81 H 42-75 % Lymphocytes (%) (Auto) 10 L 12-44 % Monocytes (%) (Auto) 7 0-12 % Eosinophils (%) (Auto) 1 0-10 % Basophils (%) (Auto) 0 0-10 % Neutrophils # (Auto) 6.5 1.8-7.8 X 10^3 Lymphocytes # (Auto) 0.8 L 1.0-4.0 X 10^3 Monocytes # (Auto) 0.5 0.0-1.0 X 10^3 Eosinophils # (Auto) 0.1 0.0-0.3 10^3/uL Basophils # (Auto) 0.0 0.0-0.1 10^3/uL Immature Granulocyte # (Auto) 0.0 0.0-0.1 10^3/uL Sodium Level 139 135-145 MMOL/L Potassium Level 3.7 3.6-5.0 MMOL/L Chloride Level 104 98-107 MMOL/L Carbon Dioxide Level 23 21-32 MMOL/L Anion Gap 12 5-14 MMOL/L Blood Urea Nitrogen 8 7-18 MG/DL Creatinine 0.78 0.60-1.30 MG/DL Estimat Glomerular Filtration Rate 77 BUN/Creatinine Ratio 10 Glucose Level 153 H 70-105 MG/DL Calcium Level 8.6 8.5-10.1 MG/DL Corrected Calcium 8.8 8.5-10.1 MG/DL Total Bilirubin 0.4 0.1-1.0 MG/DL Aspartate Amino Transf (AST/SGOT) 22 5-34 U/L Alanine Aminotransferase (ALT/SGPT) 18 0-55 U/L Alkaline Phosphatase 120 40-136 U/L Troponin I < 0.30 <0.30 NG/ML Pro-B-Type Natriuretic Peptide 166.5 H <75.0 PG/ML Total Protein 7.2 6.4-8.2 GM/DL Albumin 3.8 3.2-4.5 GM/DL My Orders Orders - DOMINICK ESPANA MD Cbc With Automated Diff (10/26/21 13:44) Comprehensive Metabolic Panel (10/26/21 13:44) Probnp Fs (10/26/21 13:44) Troponin I Fs (10/26/21 13:44) Chest 1 View Ap/Pa Only (10/26/21 13:44) Vital Signs/I&O Capillary Refill : Progress Note : Progress Note 81-year-old female with above history coming in due to increasing cough and congestion. ABCs were intact and vitals were stable on presentation. Lung sounds are clear and overall she is well-appearing. Chest x-ray unchanged from prior on my interpretation. Basic labs including cardiac biomarkers reassuring. She is tentatively day 11 of her quarantine, oxygen has been good with prolonged monitoring in the emergency department, and overall I believe she is likely going to improve soon. Given that it has been a mild COVID infection without significant illness, and that she is day 11, do not recommend any new medications at this time. She would not qualify for any type of monoclonal antibody treatments or new oral therapy for COVID. I believe she is stable for discharge with outpatient follow-up. She was sent home with strict return precautions. Diagnostic Imaging Diagonstic Imaging: Xray Comments [facility], [place] NAME: ERLINDA HUYNH [facility] REC#: [id number] PT STATUS: REG ER : 1940 PHYSICIAN: DOMINICK ESPANA MD ADMIT DATE: 10/26/21/ER FS Draft Date of Exam:10/26/21 CHEST 1 VIEW AP/PA ONLY EXAMINATION: Chest 1 view HISTORY: Shortness of breath. Cough. COMPARISON: None available. FINDINGS: The lung volumes are normal. No focal consolidation is seen. No large pleural effusion or pneumothorax is seen. The cardiomediastinal silhouette is prominent. No acute osseous abnormality is seen. IMPRESSION: 1. Cardiomegaly. No overt pulmonary edema. Dictated on workstation # [id number] Dict: 10/26/21 1358 Trans: 10/26/21 1400 [id number] [id number] Interpreted by: CLINTON OLEARY DO Electronically signed by: Departure Impression Primary Impression: COVID-19 Additional Impression: URI with cough and congestion Disposition: HOME, SELF-CARE Condition: Stable Departure-Patient Inst. Decision time for Depature: 14:41 Referrals: ALVARO HUTSON MD (PCP/Family) Primary Care Physician Patient Instructions: COVID-19 (DC) Add. Discharge Instructions: Your chest x-ray looks clear and you do not have any signs of pneumonia. Your labs are reassuring as well. Continue to take ncjn-ddr-zcbbztd medicines for cough and cold. Since your day 11 of your COVID infection, you likely will begin improving soon. Please follow-up with your regular doctor in the next several days, especially as you are exiting your quarantine. DOMINICK ESPANA MD Oct 26, 2021 13:47
--- NOTE | 2021-10-26 14:01 | Diagnostic Imaging Report ---
EXAMINATION: Chest 1 view HISTORY: Shortness of breath. Cough. COMPARISON: None available. FINDINGS: The lung volumes are normal. No focal consolidation is seen. No large pleural effusion or pneumothorax is seen. The cardiomediastinal silhouette is prominent. No acute osseous abnormality is seen. IMPRESSION: 1. Cardiomegaly. No overt pulmonary edema. Dictated by: Dictated on workstation # [id number]
[2021-10-26 14:28] LABS: EOSINOPHILS % (AUTO) 1 % (0-10); HEMATOCRIT 44 % (35-52); LYMPHOCYTES % (AUTO) 10 % (12-44); MEAN CORPUSCULAR HEMOGLOBIN 31 pg (25-34); MEAN CORPUSCULAR HGB CONC 34 g/dL (32-36); MEAN CORPUSCULAR VOLUME 91 fL (80-99); MEAN PLATELET VOLUME 10.1 fL (9.0-12.2); MONOCYTES % (AUTO) 7 % (0-12); NEUTROPHILS % (AUTO) 81 % (42-75); PLATELET COUNT 244 10^3/uL (130-400)
[2021-10-26 14:29] LABS: BASOPHILS % (AUTO) 0 % (0-10); EOSINOPHILS # (AUTO) 0.1 10^3/uL (0.0-0.3); LYMPHOCYTES # (AUTO) 0.8 X 10^3 (1.0-4.0); MONOCYTES # (AUTO) 0.5 X 10^3 (0.0-1.0); NEUTROPHILS # (AUTO) 6.5 X 10^3 (1.8-7.8)
[2021-10-26 14:36] LABS: ALANINE AMINOTRANSFERASE 18 U/L (0-55); ALBUMIN 3.8 GM/DL (3.2-4.5); ALKALINE PHOSPHATASE 120 U/L (40-136); BILIRUBIN,TOTAL 0.4 MG/DL (0.1-1.0); BUN/CREATININE RATIO 10; CALCIUM 8.6 MG/DL (8.5-10.1); CARBON DIOXIDE 23 MMOL/L (21-32); CHLORIDE 104 MMOL/L (98-107); CREATININE SERUM 0.78 MG/DL (0.60-1.30); GFR ESTIMATED 77; GLUCOSE 153 MG/DL (70-105); POTASSIUM 3.7 MMOL/L (3.6-5.0); SODIUM 139 MMOL/L (135-145); TOTAL PROTEIN 7.2 GM/DL (6.4-8.2)
[2021-10-26 14:49] VITALS: BP 130/70
== END 2021-10-26 14:49 | disposition home or self-care (01) ==
LOC: EDUNIT# 13:23 → ER FS 13:25
DX: U07.1 COVID-19 (principal); R09.81 Nasal congestion; I10 Essential (primary) hypertension; K21.9 Gastro-esophageal reflux disease without esophagitis; Z79.899 Other long term (current) drug therapy
CPT/HCPCS: 36415; 71045; 80053; 83880; 84484; 85025

== ENCOUNTER 2022-04-06 22:46 | Emergency (ER) | payer MEDICARE, OTHER ==
[~2022-04-06] VITALS: Ht 154.9 cm; Wt 69.9 kg
--- NOTE | 2022-04-06 22:50 | ED General ---
General Stated Complaint: HIGH BP,BLURRED VISION History of Present Illness Date Seen by Provider: Apr 06, 2022 Time Seen by Provider: 22:50 Initial Comments 81-year-old female presents because her vision temporarily got little blurry that is resolved. She checked her blood pressure at home and it was 180s on the first check and then 140 on the second check. Patient reports that she has just some generalized malaise feels like she has a "little bit of bronchitis going on. Patient does report that her son last week had a virus. She has a mild cough. No fever, chills, shortness of breath, chest pain, nausea or vomiting. Allergies and Home Medications Allergies Coded Allergies: No Known Drug Allergies (Unverified , 02/11/13) Patient Home Medication List Home Medication List Reviewed: Yes Hydrocodone Bit/Acetaminophen (Lortab 5 Mg Tablet) 1 Tab Tab, 1 EACH PO Q8H PRN for PAIN-SEVERE (8-10) Prescribed by: SUKHDEEP MC on 12/01/192203 Nitrofurantoin/Nitrofuran Mac (Macrobid) 100 Mg Capsule, 1 EACH PO BID Prescribed by: STEPHANIE DIAZ on 02/11/13 1810 Ondansetron Hcl (Zofran Oral Dissolve) 4 Mg Tab, 4 MG PO Q4H Prescribed by: STEPHANIE DIAZ on 02/11/13 1748 Pantoprazole Sodium (Protonix) 40 Mg Tablet.dr, 1 TAB PO DAILY Prescribed by: STEPHANIE DIAZ on 02/11/13 1748 Review of Systems Review of Systems Constitutional: No chills, No fever; malaise EENTM: see HPI, blurred vision (Now resolved) Respiratory: cough; No short of breath Cardiovascular: No chest pain, No palpitations Gastrointestinal: No abdominal pain, No nausea, No vomiting Genitourinary: no symptoms reported Musculoskeletal: no symptoms reported Skin: no symptoms reported Psychiatric/Neurological: See HPI Hematologic/Lymphatic: No Symptoms Reported Past Bnvyzqk-Udhkut-Nxtdsy Hx Immunizations Up To Date First/Initial COVID19 Vaccinat: 2020 Second COVID19 Vaccination Wale: 2020 Third COVID19 Vaccination Date: N/A Past Medical History Surgeries: Yes (EGD/COLONOSCOPY) Respiratory: Yes Chronic Bronchitis Cardiac: Yes Hypertension Neurological: No Genitourinary: No Gastrointestinal: Yes Gastroesophageal Reflux, Diverticulosis Musculoskeletal: Yes Arthritis, Back Injury Endocrine: Yes Hypothyroidsim Double Vision Cancer: No Psychosocial: No Integumentary: No Blood Disorders: No Physical Exam Vital Signs Vital Signs - First Documented 04/06/22 22:48 Temp 36.3 Pulse 75 Resp 18 B/P (MAP) 180/68 (105) Pulse Ox 95 O2 Delivery Room Air Capillary Refill : Height, Weight, BMI Height: '" Weight: lbs. oz. kg; 25.00 BMI Method: General Appearance: No Apparent Distress, WD/WN HEENT: PERRL/EOMI, Moist Mucous Membranes Respiratory: Lungs Clear, Normal Breath Sounds Cardiovascular: Regular Rate, Rhythm, No Edema Gastrointestinal: Non Tender, Soft Neurologic/Psychiatric: Alert, Oriented x3, No Motor/Sensory Deficits, Normal Mood/Affect, clinical research coordinator II-XII Norm as Tested Skin: Normal Color, Warm/Dry Procedures/Interventions Suture Size: 4-0 Progress/Results/Core Measures Suspected Sepsis SIRS Temperature: Pulse: Respiratory Rate: Laboratory Tests 04/06/22 22:55: White Blood Count 6.9 Blood Pressure / Mean: Laboratory Tests 04/06/22 22:55: Creatinine 0.93, Platelet Count 241, Total Bilirubin 0.4 Results/Orders Lab Results Laboratory Tests Test 04/06/22 22:55 04/06/22 23:20 04/06/22 23:33 Range/Units White Blood Count 6.9 4.3-11.0 10^3/uL Red Blood Count 5.10 3.80-5.11 10^6/uL Hemoglobin 15.5 11.5-16.0 g/dL Hematocrit 46 35-52 % Mean Corpuscular Volume 91 80-99 fL Mean Corpuscular Hemoglobin 30 25-34 pg Mean Corpuscular Hemoglobin Concent 34 32-36 g/dL Red Cell Distribution Width 11.9 10.0-14.5 % Platelet Count 241 130-400 10^3/uL Mean Platelet Volume 10.2 9.0-12.2 fL Immature Granulocyte % (Auto) 0 % Neutrophils (%) (Auto) 59 42-75 % Lymphocytes (%) (Auto) 29 12-44 % Monocytes (%) (Auto) 8 0-12 % Eosinophils (%) (Auto) 2 0-10 % Basophils (%) (Auto) 1 0-10 % Neutrophils # (Auto) 4.1 1.8-7.8 10^3/uL Lymphocytes # (Auto) 2.0 1.0-4.0 10^3/uL Monocytes # (Auto) 0.6 0.0-1.0 10^3/uL Eosinophils # (Auto) 0.2 0.0-0.3 10^3/uL Basophils # (Auto) 0.0 0.0-0.1 10^3/uL Immature Granulocyte # (Auto) 0.0 0.0-0.1 10^3/uL Sodium Level 137 135-145 MMOL/L Potassium Level 3.8 3.6-5.0 MMOL/L Chloride Level 102 98-107 MMOL/L Carbon Dioxide Level 25 21-32 MMOL/L Anion Gap 10 5-14 MMOL/L Blood Urea Nitrogen 12 7-18 MG/DL Creatinine 0.93 0.60-1.30 MG/DL Estimat Glomerular Filtration Rate 62 BUN/Creatinine Ratio 13 Glucose Level 121 H 70-105 MG/DL Calcium Level 9.3 8.5-10.1 MG/DL Corrected Calcium 9.2 8.5-10.1 MG/DL Magnesium Level 1.9 1.6-2.4 MG/DL Total Bilirubin 0.4 0.1-1.0 MG/DL Aspartate Amino Transf (AST/SGOT) 17 5-34 U/L Alanine Aminotransferase (ALT/SGPT) 9 0-55 U/L Alkaline Phosphatase 138 H 40-136 U/L C-Reactive Protein < 0.30 <0.50 MG/DL Total Protein 7.6 6.4-8.2 GM/DL Albumin 4.1 3.2-4.5 GM/DL Influenza Type A (RT-PCR) Not Detected Not Detecte Influenza Type B (RT-PCR) Not Detected Not Detecte SARS-CoV-2 RNA (RT-PCR) Not Detected Not Detecte Urine Color YELLOW Urine Clarity CLEAR Urine pH 5.5 5-9 Urine Specific [place] <=1.005 1.016-1.022 Urine Protein NEGATIVE NEGATIVE Urine Glucose (UA) NEGATIVE NEGATIVE Urine Ketones NEGATIVE NEGATIVE Urine Nitrite NEGATIVE NEGATIVE Urine Bilirubin NEGATIVE NEGATIVE Urine Urobilinogen 0.2 < = 1.0 MG/DL Urine Leukocyte Esterase 1+ H NEGATIVE Urine RBC (Auto) NEGATIVE NEGATIVE Urine RBC NONE /HPF Urine WBC 2-5 /HPF Urine Squamous Epithelial Cells 0-2 /HPF Urine Crystals NONE /LPF Urine Bacteria FEW H /HPF Urine Casts NONE /LPF Urine Mucus NEGATIVE /LPF Urine Culture Indicated NO My Orders Orders - JULIA HERNANDEZ DO Cbc With Automated Diff (04/06/22 22:59) Comprehensive Metabolic Panel (04/06/22 22:59) Magnesium (04/06/22 22:59) Ua Culture If Indicated (04/06/22 22:59) Influenza A And B By Pcr (04/06/22 22:59) Crp Fs (04/06/22 22:59) Covid 19 Inhouse Test (04/06/22 22:59) Chest 1 View Ap/Pa Only (04/06/22 22:59) Ed Iv/Invasive Line Start (04/06/22 22:59) Vital Signs/I&O 04/06/22 04/06/22 22:48 23:15 Temp 36.3 Pulse 75 56 Resp 18 18 B/P (MAP) 180/68 (105) 148/74 Pulse Ox 95 94 O2 Delivery Room Air Room Air Capillary Refill : Progress Note : Progress Note Patient remain asymptomatic throughout her stay. Urine has small leukocyte Estrace and small bacteria but patient is not having urinary symptoms so will await culture. Labs otherwise show no significant acute findings. Patient negative chest x-ray. Patient did state that this seems like at home when she has her symptoms her pulse rate is "low" on her machine. I discussed with her that she might want follow-up with her primary care provider and consider a Holter monitor since she did have an episode where she dropped into the high 40s and low 50s however she remained asymptomatic. That may be was causing her to feel a little bit dizzy occasionally. Patient otherwise stable and will be discharged home Departure Impression Primary Impression: Dizziness, nonspecific Disposition: 01 HOME, SELF-CARE Condition: Stable Departure-Patient Inst. Referrals: ALVARO HUTSON MD (PCP/Family) Primary Care Physician Patient Instructions: Dizziness, Adult ED Add. Discharge Instructions: Follow-up with your primary care provider for further out patient management and evaluation. Please mention to him that your heart rate sometimes reads low on your monitor. He may consider a cardiology consult. Return to ER if symptoms worsen or if you have any other concerns JULIA HERNANDEZ DO Apr 06, 2022 22:50
[2022-04-06 23:10] LABS: BASOPHILS % (AUTO) 1 % (0-10); EOSINOPHILS # (AUTO) 0.2 10^3/uL (0.0-0.3); EOSINOPHILS % (AUTO) 2 % (0-10); HEMATOCRIT 46 % (35-52); HEMOGLOBIN 15.5 g/dL (11.5-16.0); LYMPHOCYTES % (AUTO) 29 % (12-44); MEAN CORPUSCULAR HEMOGLOBIN 30 pg (25-34); MEAN CORPUSCULAR HGB CONC 34 g/dL (32-36); MEAN CORPUSCULAR VOLUME 91 fL (80-99); MEAN PLATELET VOLUME 10.2 fL (9.0-12.2); MONOCYTES # (AUTO) 0.6 10^3/uL (0.0-1.0); MONOCYTES % (AUTO) 8 % (0-12); NEUTROPHILS # (AUTO) 4.1 10^3/uL (1.8-7.8); NEUTROPHILS % (AUTO) 59 % (42-75); PLATELET COUNT 241 10^3/uL (130-400); WHITE BLOOD COUNT 6.9 10^3/uL (4.3-11.0)
[2022-04-06 23:30] LABS: ALANINE AMINOTRANSFERASE 9 U/L (0-55); ALBUMIN 4.1 GM/DL (3.2-4.5); ALKALINE PHOSPHATASE 138 U/L (40-136); BILIRUBIN,TOTAL 0.4 MG/DL (0.1-1.0); BUN/CREATININE RATIO 13; CALCIUM 9.3 MG/DL (8.5-10.1); CARBON DIOXIDE 25 MMOL/L (21-32); CHLORIDE 102 MMOL/L (98-107); CREATININE SERUM 0.93 MG/DL (0.60-1.30); GFR ESTIMATED 62; GLUCOSE 121 MG/DL (70-105); MAGNESIUM 1.9 MG/DL (1.6-2.4); POTASSIUM 3.8 MMOL/L (3.6-5.0); SODIUM 137 MMOL/L (135-145); TOTAL PROTEIN 7.6 GM/DL (6.4-8.2)
[2022-04-06 23:37] LABS: BILIRUBIN,URINE NEGATIVE (NEGATIVE); CLARITY,URINE CLEAR; COLOR,URINE YELLOW; GLUCOSE, URINE (UA) NEGATIVE (NEGATIVE); KETONES,URINE NEGATIVE (NEGATIVE); LEUKOCYTE ESTERASE ,URINE 1+ (NEGATIVE); NITRITE,URINE NEGATIVE (NEGATIVE); PH,URINE 5.5 (5-9); PROTEIN,URINE NEGATIVE (NEGATIVE)
[2022-04-06 23:46] LABS: BACTERIA,URINE FEW /HPF; SQUAMOUS EPITHELIAL CELL,UR 0-2 /HPF
[2022-04-07 00:10] VITALS: BP 146/66
--- NOTE | 2022-04-07 05:35 | Diagnostic Imaging Report ---
INDICATION: Cough Portable AP view of the chest is obtained with comparison made to the study of 10/26/2021. There has been mild worsening of cardiomegaly and pulmonary venous congestion. There is no pneumothorax. There is obscuration of the left heart border which may be due to lingular infiltrate. There is also probable hiatal hernia present. IMPRESSION: Mild worsening cardiomegaly and pulmonary venous congestion which may be due to congestive heart failure. Dictated by: Dictated on workstation # [id number]
== END 2022-04-07 00:10 | disposition home or self-care (01) ==
LOC: EDUNIT# 22:46 → ER FS 22:47
DX: R42 Dizziness and giddiness (principal); R82.998 Other abnormal findings in urine; I10 Essential (primary) hypertension; Z20.822 Contact with and (suspected) exposure to COVID-19
CPT/HCPCS: 36415; 71045; 80053; 81000; 83735; 85025; 86141; 87636

== ENCOUNTER → 2022-05-10 | Outpatient (CLI) | payer MEDICARE, OTHER | LOC: CARD 15:13 | PROVIDERS: ATTEND Internal Medicine Cardiovascular Disease | DX: I49.3 Ventricular premature depolarization (principal) | CPT/HCPCS: 93225; 93226 ==

== ENCOUNTER → 2022-05-13 | Outpatient (CLI) | payer MEDICARE, OTHER | LOC: CARDFS 12:46 | PROVIDERS: ATTEND Internal Medicine Cardiovascular Disease | DX: I08.1 Rheumatic disorders of both mitral and tricuspid valves (principal); R94.31 Abnormal electrocardiogram [ECG] [EKG] | CPT/HCPCS: 93306 ==

== ENCOUNTER → 2022-05-24 | Outpatient (CLI) | payer MEDICARE, OTHER ==
[~2022-05-24] VITALS: Ht 154.9 cm; Wt 69.9 kg
[~2022-05-24] MED LIST changes: +AMLO2.5T4 PO; +LEVO75CA5 PO; +METO50TA7 PO; +MULT-593 PO; +OMEP40CA6 PO
== END ==
LOC: PREOP 05:34
PROVIDERS: ATTEND Surgery
DX: Z01.818 Encounter for other preprocedural examination (principal); R13.10 Dysphagia, unspecified

== ENCOUNTER → 2022-05-27 | Outpatient (CLI) | payer MEDICARE, OTHER ==
[~2022-05-27] MED LIST changes: +CATHETER FLUSH 10 ML SYR IVP PRN; +REGADENOSON 0.4 MG/5 ML SYR (LEXISCAN) IV ONE
[2022-05-27 09:18] VITALS: BP 187/97
--- NOTE | 2022-05-27 12:08 | NUCLEAR STRESS TEST ---
REGADENOSON NUCLEAR STRESS Date of procedure: 05/27/2022. Primary care provider: Jhonny Kim MD Admitting physician: Seferino Araiza Jr., MD. INDICATION: Abnormal electrocardiogram. BASELINE ELECTROCARDIOGRAM: Sinus rhythm with frequent premature ventricular complexes and right bundle branch block. STRESS TEST PROCEDURE: The patient was administered 0.4 mg of intravenous Regadenoson. The resting heart rate was 66 bpm and the peak heart rate was 98 bpm. The resting blood pressure was 181/97 mmHg and the minimum blood pressure was 156/132 mmHg. This represents a normal heart rate and a normal blood pressu re response to Regadenoson with resting hypertension. The test was stopped due to the protocol. There was no chest discomfort during the test. There were frequent, isolated premature ventricular complexes throughout the duration of the test. There were no significant stress induced electrocardiogram changes. NUCLEAR PROCEDURE: The patient was administered 9.8 mCi of intravenous technetium 99m Tetrofosmin at rest for the rest images. The patient was subsequently administered 28.3 mCi of intravenous technetium 99m Tetrofosmin at peak stress for the stress images. Following an appropriate wait after each injection, imaging was obtained. The images were subsequently processed and reformatted in the usual views. Gated imaging was obtained. The image quality was adequate with a mild degree of gastrointestinal attenuation artifact. CT attenuation correction was used as a adjunct to standard imaging. Both the corrected and uncorrected images were reviewed for interpretation. NUCLEAR RESULTS: There was a moderate sized, moderate intensity, predominantly reversible mid to distal anterior defect with a moderate amount of inducible is chemia with a summed stress score of 9 and a summed difference score of 8. There was normal left ventricular chamber size with an end-diastolic volume of 39 mL and an end-systolic volume of 16 mL. There was no evidence of transient ischemic dilatation. The TID ratio was 0.97. There was normal wall motion in all segments with a calculated ejection fraction of 58%. IMPRESSION: 1. Normal heart rate and blood pressure response to regadenoson with resting hypertension. 2. There was no chest discomfort or electrocardiogram changes during the test. 3. There were frequent, isolated premature ventricular complexes throughout the duration of the test. 4. There was a moderate sized, moderate intensity, predominantly reversible mid to distal anterior defect with a moderate amount of inducible ischemia with a summed stress score of 9 and a summed difference score of 8. 5. There was normal wall motion in all segments with a calculated ejection fraction of 58%. 6. This is an abnormal result representing an overall moderate risk for possible future coronary ischemic events. Certain portions of this document may have been dictated utilizing voice recognition technology. Inherent to this technology, typographical and grammatical errors may exist. As much as I am diligent to identify and correct these mistakes, some errors may remain in the document. SEFERINO ARAIZA JR, MD May 27, 2022 12:08
== END ==
LOC: CARD 07:45
PROVIDERS: ATTEND Internal Medicine Cardiovascular Disease
DX: R94.31 Abnormal electrocardiogram [ECG] [EKG] (principal)
CPT/HCPCS: 78452; 93017; A9502

== ENCOUNTER → 2022-05-31 | Outpatient (CLI) | payer MEDICARE, OTHER ==
[~2022-05-31] MED LIST changes: -CATHETER FLUSH 10 ML SYR IVP PRN; -REGADENOSON 0.4 MG/5 ML SYR (LEXISCAN) IV ONE
[2022-05-31 11:22] LABS: BASOPHILS % (AUTO) 1 % (0-10); EOSINOPHILS # (AUTO) 0.1 10^3/uL (0.0-0.3); EOSINOPHILS % (AUTO) 2 % (0-10); HEMATOCRIT 46 % (35-52); HEMOGLOBIN 15.6 g/dL (11.5-16.0); LYMPHOCYTES # (AUTO) 1.6 10^3/uL (1.0-4.0); LYMPHOCYTES % (AUTO) 21 % (12-44); MEAN CORPUSCULAR HEMOGLOBIN 30 pg (25-34); MEAN CORPUSCULAR HGB CONC 34 g/dL (32-36); MEAN CORPUSCULAR VOLUME 89 fL (80-99); MEAN PLATELET VOLUME 10.4 fL (9.0-12.2); MONOCYTES # (AUTO) 0.5 10^3/uL (0.0-1.0); MONOCYTES % (AUTO) 6 % (0-12); NEUTROPHILS # (AUTO) 5.2 10^3/uL (1.8-7.8); NEUTROPHILS % (AUTO) 70 % (42-75); PLATELET COUNT 216 10^3/uL (130-400); WHITE BLOOD COUNT 7.5 10^3/uL (4.3-11.0)
[2022-05-31 11:48] LABS: INR 0.9 (0.8-1.4); PROTHROMBIN TIME PATIENT 12.9 SEC (12.2-14.7)
[2022-05-31 12:09] LABS: CALCIUM 9.3 MG/DL (8.5-10.1); CREATININE SERUM 1.02 MG/DL (0.60-1.30)
== END ==
LOC: LAB FS 10:51
PROVIDERS: ATTEND Internal Medicine Cardiovascular Disease
DX: R94.39 Abnormal result of other cardiovascular function study (principal)
CPT/HCPCS: 36415; 80048; 85025; 85610

== ENCOUNTER 2022-06-03 11:00 | Day surgery (SDC) | payer MEDICARE, OTHER ==
[~2022-06-03] VITALS: Ht 154.9 cm; Wt 69.9 kg
[2022-06-03] VITALS (11 sets, daily range): BP systolic 96–147; BP diastolic 60–115
--- NOTE | 2022-06-03 10:12 | Pre-Op Note & Conscious Sedat ---
Pre-Operative Progress Note Date H&P Reviewed: Jun 03, 2022 Time H&P Reviewed: 10:11 History & Physical: H&P Reviewed, Patient Examed, No changes noted Pre-Op Diagnosis: Abnormal nuclear stress test Conscious Sedation Pre-Proced ASA Score 2 For ASA 3 and 4: Consider anesthesia and medical clearance. Also, for patients with a history of failed moderate sedation consider anesthesia. Airway Lungs Heart ASA score ASA 1: a normal healthy patient ASA 2: a patient with a mild systemic disease (mid diabetes, controlled hypertension, obesity ASA 3: a patient with a severe systemic disease that limits activity (angina, COPD, prior Myocardial infarction) ASA 4: a patient with an incapacitating disease that is a constant threat to life (CHF, renal failure) ASA 5: a moribund patient not expected to survive 24 hrs. (ruptured aneurysm) ASA 6: a declared brain- patient whose organs are being harvested. For emergent operations, add the letter E after the classification Mallampati Classification Grade 2 Sedation Plan Analgesia, Amnesia, Plan communicated to team members, Discussed options with patient/fam, Discussed risks with patient/fam The patient is an appropriate candidate to undergo the planned procedure, sedation, and anesthesia. The patient immediately re-assessed prior to indication. Given the patient's overall clinical status, she is considered vulnerable. She has no history of heart failure. SYLWIA HARDIN JR, MD Jun 03, 2022 10:12
[~2022-06-03 11:00] MED LIST changes: +ACET325T38 PO; +ASPIRIN 81 MG CHEW (CHILDREN'S ASA) ONE; +ASPIRIN 81 MG CHEW (CHILDREN'S ASA) PO ONE; +CATHETER FLUSH 10 ML SYR IV PRN; +HEParin (CATH LAB) 2,000 ML IV ONE; +LEVO50TA6 PO; +LIDOCAINE 1% INJ 20 ML VIAL ONE; +NS IV 1000 ML 1,000 ML IV ONE; +NS IV 1000 ML 1,000 ML ONE; +POLY30DR6 OU; +ROSU5TAB13 PO
[2022-06-03] MEDS ORDERED: MIDAZOLAM 5 MG/5 ML (VERSED) VIAL ONE (11:06)
[2022-06-03] MEDS ORDERED: fentaNYL INJ 100 MCG/2 ML AMP ONE (11:06)
[2022-06-03] MEDS ORDERED: NITRO DRIP 25000 MCG/D5W 250 ML IV ONE (11:06)
[2022-06-03] MEDS ORDERED: HEParin 1000 UNIT/ML (10ML VIAL) FOR BOLUS ONE (11:06)
[2022-06-03] MEDS ORDERED: VERAPAMIL 5 MG/2 ML (CALAN) VIAL IV ONE (11:09)
[2022-06-03] MEDS ORDERED: NS IV 1000 ML 1,000 ML IV SCH (12:00)
--- NOTE | 2022-06-03 12:01 | Cardiac Cath Report ---
CARDIAC CATHETERIZATION DATE OF PROCEDURE: 06/03/2022 INDICATION: Abnormal nuclear stress test. HISTORY: The patient is a 81 year old female with no known history of coronary artery disease. I saw her in the office for an evaluation of ventricular ectopy. I had her undergo a nuclear stress test which showed a moderate sized mid to distal anterior ischemic defect with a normal ejection fraction. In light of the abnormal stress test, she is now referred for further evaluation with a cardiac catheterization. Given her current clinical status, she is considered vulnerable. She has no history of heart failure. PROCEDURES PERFORMED: 1. Left heart catheterization with hemodynamic measurements. 2. Diagnostic [place] coronary angiography. PROCEDURE DESCRIPTION: After informed consent and in the fasting state, left heart catheterization was performed through the right radial artery utilizing a set Montenegrin system by percutaneous approach. Standard 5 Montenegrin Michelet catheters and a 5 Montenegrin JL 3.5 catheter were utilized for the diagnostic portion of the procedure. All catheters were exchanged over a guidewire. Following the procedure, a vascular band was applied to the radial artery access site and the sheath was removed with good hemostasis. RESULTS: HEMODYNAMICS: The aortic pressure was 127/64 mmHg. The left ventricular pressure was 123/0 mmHg with a left ventricular end-diastolic pressure of 12 mmHg. There was no pressure gradient upon pullback across aortic valve. CORONARY ANGIOGRAPHY: Left main coronary artery: Free of significant disease. Left anterior descending coronary artery: Free of significant disease. Left circumflex coronary artery: Free of significant disease. Right coronary artery: Dominant and there were several 30% stenoses in the proximal and mid segment. IMPRESSION: 1. Normal central aortic pressure with mildly elevated left ventricular end- diastolic pressure. 2. Mild single-vessel coronary artery disease involving the dominant right coronary artery as outlined above. 3. The patient is known to have normal left ventricular systolic function with an estimated ejection fraction of 55-60% by echocardiogram that was performed on 05/13/2022. Certain portions of this document may have been dictated utilizing voice recognition technology. Inherent to this technology, typographical and grammatical errors may exist. As much as I am diligent to identify and correct these mistakes, some errors may remain in the document. SYLWIA HARDIN JR, MD Jun 03, 2022 12:01
== END 2022-06-03 15:30 | disposition home or self-care (01) ==
LOC: CATH 11:00 → CSD 12:38 → CATH 15:30
PROVIDERS: ATTEND Internal Medicine Cardiovascular Disease
DX: I25.10 Atherosclerotic heart disease of native coronary artery without angina pectoris (principal); Z79.899 Other long term (current) drug therapy; K21.9 Gastro-esophageal reflux disease without esophagitis; E03.9 Hypothyroidism, unspecified; E66.3 Overweight; Z79.890 Hormone replacement therapy; I49.3 Ventricular premature depolarization
CPT/HCPCS: 87081; 93458; C1894

== ENCOUNTER 2022-06-04 12:35 | Observation (INO) | payer MEDICARE, OTHER ==
[~2022-06-04] VITALS: Ht 155 cm; Wt 69.4 kg
[~2022-06-04 12:35] MED LIST changes: -ASPIRIN 81 MG CHEW (CHILDREN'S ASA) ONE; -ASPIRIN 81 MG CHEW (CHILDREN'S ASA) PO ONE; -CATHETER FLUSH 10 ML SYR IV PRN; -HEParin (CATH LAB) 2,000 ML IV ONE; -LIDOCAINE 1% INJ 20 ML VIAL ONE; -NS IV 1000 ML 1,000 ML IV ONE; -NS IV 1000 ML 1,000 ML ONE
[2022-06-04 14:45] LABS: BASOPHILS % (AUTO) 0 % (0-10); EOSINOPHILS # (AUTO) 0.1 10^3/uL (0.0-0.3); EOSINOPHILS % (AUTO) 1 % (0-10); HEMATOCRIT 46 % (35-52); HEMOGLOBIN 15.4 g/dL (11.5-16.0); LYMPHOCYTES # (AUTO) 1.4 10^3/uL (1.0-4.0); LYMPHOCYTES % (AUTO) 19 % (12-44); MEAN CORPUSCULAR HEMOGLOBIN 30 pg (25-34); MEAN CORPUSCULAR HGB CONC 34 g/dL (32-36); MEAN CORPUSCULAR VOLUME 89 fL (80-99); MEAN PLATELET VOLUME 10.2 fL (9.0-12.2); MONOCYTES # (AUTO) 0.4 10^3/uL (0.0-1.0); MONOCYTES % (AUTO) 6 % (0-12); NEUTROPHILS # (AUTO) 5.1 10^3/uL (1.8-7.8); NEUTROPHILS % (AUTO) 73 % (42-75); PLATELET COUNT 213 10^3/uL (130-400)
[2022-06-04 14:47] LABS: BILIRUBIN,URINE NEGATIVE (NEGATIVE); CLARITY,URINE CLEAR; COLOR,URINE YELLOW; GLUCOSE, URINE (UA) NEGATIVE (NEGATIVE); KETONES,URINE NEGATIVE (NEGATIVE); LEUKOCYTE ESTERASE ,URINE TRACE (NEGATIVE); NITRITE,URINE NEGATIVE (NEGATIVE); PROTEIN,URINE NEGATIVE (NEGATIVE)
[2022-06-04 14:54] LABS: BACTERIA,URINE TRACE /HPF
[2022-06-04 15:00] LABS: ALBUMIN 3.9 GM/DL (3.2-4.5); POTASSIUM 3.9 MMOL/L (3.6-5.0)
[2022-06-04 15:01] LABS: CALCIUM 9.3 MG/DL (8.5-10.1)
[2022-06-04 15:02] LABS: TOTAL PROTEIN 7.2 GM/DL (6.4-8.2)
[2022-06-04 15:03] LABS: PROTHROMBIN TIME PATIENT 13.6 SEC (12.2-14.7)
[2022-06-04 15:04] LABS: BILIRUBIN,TOTAL 0.8 MG/DL (0.1-1.0)
[2022-06-04 15:06] LABS: CREATININE SERUM 0.95 MG/DL (0.60-1.30)
[2022-06-04 15:23] LABS: MAGNESIUM 1.9 MG/DL (1.6-2.4)
--- NOTE | 2022-06-04 16:15 | Diagnostic Imaging Report ---
PROCEDURE: CT thoracic and lumbar spine without contrast. TECHNIQUE: Multiple contiguous axial images were obtained through the thoracic and lumbar spine without the use of intravenous contrast. Sagittal and coronal reformations were then performed. All CT scans use one or more of the following dose optimizing techniques: automated exposure control, MA and/or KvP adjustment based on patient size and exam type or iterative reconstruction. INDICATION: Weakness. Falls. Mid and lower back pain. COMPARISON: None. FINDINGS: No acute fracture or dislocation is seen in the thoracic or lumbar spine. There is S-shaped curvature of the thoracolumbar spine. Generalized osteopenia is noted. No suspicious focal osseous lesion is seen. No evidence of acute spinal canal stenosis. No evidence of high density material is seen within the spinal canal. The included lungs are clear. Prominent hiatal hernia is seen. The paraspinal soft tissues are unremarkable. IMPRESSION: 1. No acute fracture or dislocation is seen in the thoracic and lumbar spine. 2. Generalized osteopenia. 3. Prominent hiatal hernia. Dictated by: Dictated on workstation # [id number]
--- NOTE | 2022-06-04 16:21 | Diagnostic Imaging Report ---
CLINICAL INDICATION: Patient complains of weakness and falls. Patient reports she had heart cath done yesterday. Patient has been weak and unable to walk. EXAM: Head CT without IV contrast with sagittal and coronal reformations. Axial CT scan of the cervical spine with sagittal and coronal reformations. Auto Exposure Controls were utilized during the CT exam to meet ALARA standards for radiation dose reduction. COMPARISON: CT scan of the head and neck without contrast dated 12/01/2019. FINDINGS: Head CT: There is no evidence of acute cerebral infarct, intracranial hemorrhage, or gross mass effect. The brain parenchymal volume appears appropriate for patient's age. There are multiple patchy and confluent areas of low-density white matter changes involving both cerebral hemispheres, likely representing chronic small vessel ischemic disease and mild leukoaraiosis. There is normal pradhan-white matter distinction. There is no significant midline shift or herniation. There is no evidence of hydrocephalus. The basal cisterns are unremarkable. The skull, extracranial soft tissue, and orbits are unremarkable. The paranasal sinuses are unremarkable. Temporal bones show no significant abnormality. Cervical spine: There is slightly excessive lordosis of the cervical spine posture. There is no acute cervical spine fracture or dislocation. There are cervical spine vertebral body spurs and facet arthropathy. There is no significant neck soft tissue abnormality. Visualized upper lung butler are clear. IMPRESSION: 1: Age-related brain parenchymal changes with no evidence of acute intracranial process. 2: There is cervical spine degenerative disease with no acute fracture or dislocation. Dictated by: Dictated on workstation # [id number]
--- NOTE | 2022-06-04 18:32 | ED General ---
General Chief Complaint: General Problems/Pain Stated Complaint: FALL,S/P HEART CATH Nursing Triage Note: PT TO ED IN BY POV WITH C/O WEAKNESS AND FALLS. PT REPORTS SHE HAD A HEART CATH DONE YESTERDAY, NO STENTS PLACED, AND HAS BEEN WEAK AND UNABLE TO WALK SINCE. REPORTS SHE HAS FALLEN 4 TIMES SINCE BEING DC, NO INJURIES. DENIES DIZZINESS, FEVER, N/V/D, ANTONIO, CP. REPORTS SHE WALKED AT LEAST A BLOCK AND A HALF PRIOR TO HEART CATH. Source of Information: Patient Exam Limitations: No Limitations History of Present Illness Date Seen by Provider: Jun 04, 2022 Time Seen by Provider: 14:03 Initial Comments This 81-year-old woman presents to the emergency room with complaints of marked exacerbation of chronic lower extremity weakness resulting in falls x4 since having a cardiac cath and discharged from the hospital yesterday. She reports as recently as 2 days ago she was able to walk a block and a half with a 3-year-old she was babysitting. Now she cannot ambulate without a walker and fell multiple times while using a walker. She does not appear to have any focal deficits and the weakness seems to be equal bilaterally. She has abrasion on the left elbow but otherwise denies any injury associated with her falls. Her heart cath was with Dr. Araiza. There was 30% stenosis of the RCA that did not require intervention. Angiography was otherwise unremarkable. Patient denies any chest pain, shortness of breath, muscle pain, fever, etc. She has had some mild muscle cramping today. She does report having history of chronic back pain. She does not have a significant stenosis to her knowledge. Her primary care provider is Karo Bennett at the [facility]. Allergies and Home Medications Allergies Coded Allergies: No Known Drug Allergies (Unverified , 06/03/22) Patient Home Medication List Home Medication List Reviewed: Yes Acetaminophen (Tylenol) 325 Mg Tablet, 650 MG PO Q6H PRN for PAIN-MILD (1-4), (Reported) Entered as Reported by: RODNEY WEST on 06/03/22 1039 Amlodipine Besylate (Amlodipine Besylate) 2.5 Mg Tablet, 2.5 MG PO DAILY, (Reported) Entered as Reported by: RAULITO RUSH on 05/24/22 1104 Last Action: Continued Levothyroxine Sodium (Levothyroxine) 75 Mcg Capsule, 75 MCG PO DAILY, (Reported) Entered as Reported by: RAULITO RUSH on 05/24/221103 Last Action: Converted Metoprolol Succinate (Metoprolol Succinate) 50 Mg Tab.er.24h, 50 MG PO DAILY, (Reported) Entered as Reported by: RAULITO RUSH on 05/24/221103 Last Action: Continued Multivitamin with Minerals (Multiple Vitamin) 1 Each Tablet, 1 EACH PO DAILY, (Reported) Entered as Reported by: RAULITO RUSH on 05/24/221103 Omeprazole (Omeprazole) 40 Mg Capsule.dr, 40 MG PO DAILY, (Reported) Entered as Reported by: RAULITO RUSH on 05/24/221103 Last Action: Converted Polyethylene Glycol 400 (Visine Dry Eye Relief) 1 % Drops, 1 DROP OU DAILY PRN for DRY EYES, (Reported) Entered as Reported by: RODNEY WEST on 06/03/22 103 Rosuvastatin Calcium (Rosuvastatin Calcium) 5 Mg Tablet, 5 MG PO DAILY, (Reported) Entered as Reported by: RODNEY WEST on 06/03/22 104 Discontinued Medications Levothyroxine Sodium (Levothyroxine Sodium) 50 Mcg Tablet, 50 MCG PO DAILY, (Reported) Discontinued Reason: No Longer Taking Entered as Reported by: RODNEY WEST on 06/03/22 1039 Review of Systems Review of Systems Constitutional: see HPI, weakness EENTM: no symptoms reported Respiratory: no symptoms reported Cardiovascular: see HPI Gastrointestinal: no symptoms reported Genitourinary: no symptoms reported Musculoskeletal: see HPI Skin: no symptoms reported Psychiatric/Neurological: See HPI Hematologic/Lymphatic: No Symptoms Reported Past Icjbdwx-Edoskq-Iouzmq Hx Patient Social History Tobacco Use?: No Use of E-Cig and/or Vaping dev: No Substance use?: No Alcohol Use?: No Pt feels they are or have been: No Immunizations Up To Date Influenza Vaccine Up-to-Date: Yes; Up-to-Date First/Initial COVID19 Vaccinat: 2020 Second COVID19 Vaccination Wale: 2020 Third COVID19 Vaccination Date: NO COVID19 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: [employer] Seasonal Allergies Seasonal Allergies: No Past Medical History Surgery/Hospitalization HX: HTN, HIGH CHOLESTEROL Surgeries: Yes (HERNA) Cardiac (Heart cath without intervention), Gallbladder, Hysterectomy Respiratory: Yes Chronic Bronchitis Cardiac: Yes Coronary Artery Disease, High Cholesterol, Hypertension Neurological: No Genitourinary: No Gastrointestinal: Yes Gastroesophageal Reflux, Diverticulosis Musculoskeletal: Yes Arthritis, Back Injury, Chronic Back Pain Endocrine: Yes Hypothyroidsim HEENT: No Double Vision Cancer: No Psychosocial: No Integumentary: No Blood Disorders: No Physical Exam Vital Signs Vital Signs - First Documented 06/04/22 13:05 Pulse 63 Resp 17 B/P (MAP) 180/90 (120) Pulse Ox 94 O2 Delivery Room Air Capillary Refill : Less Than 3 Seconds Height, Weight, BMI Height: '" Weight: lbs. oz. kg; 28.00 BMI Method: General Appearance: No Apparent Distress, WD/WN HEENT: PERRL/EOMI, Normal ENT Inspection Neck: Normal Inspection Respiratory: Lungs Clear, Normal Breath Sounds, No Accessory Muscle Use Cardiovascular: Regular Rate, Rhythm, No Edema, No Murmur Gastrointestinal: Non Tender, Soft; No Distended Extremity: Normal Inspection, No Pedal Edema, Other (Catheter insertion site dressing on the right wrist) Neurologic/Psychiatric: Alert, Oriented x3, Normal Mood/Affect, microsoft systems engineer II-XII Norm as Tested, Motor Weakness (Subtle generalized weakness of the lower extremities and difficulty ambulating. No focal weakness identified.) Skin: Normal Color, Warm/Dry Focused Exam Lactate Level 06/04/22 16:45: Lactic Acid Level 1.22 Lactic Acid Level Laboratory Tests Test 06/04/22 16:45 Lactic Acid Level 1.22 MMOL/L (0.50-2.00) Procedures/Interventions Suture Size: 4-0 Progress/Results/Core Measures Suspected Sepsis SIRS Temperature: Pulse: 63 Respiratory Rate: 17 Laboratory Tests 06/04/22 14:30: White Blood Count 7.0 Blood Pressure 180 /90 Mean: 120 06/04/22 16:45: Lactic Acid Level 1.22 Laboratory Tests 06/04/22 14:30: Creatinine 0.95, INR Comment 1.0, Platelet Count 213, Total Bilirubin 0.8 Results/Orders Lab Results Laboratory Tests Test 06/04/22 14:30 06/04/22 16:45 Range/Units White Blood Count 7.0 4.3-11.0 10^3/uL Red Blood Count 5.09 3.80-5.11 10^6/uL Hemoglobin 15.4 11.5-16.0 g/dL Hematocrit 46 35-52 % Mean Corpuscular Volume 89 80-99 fL Mean Corpuscular Hemoglobin 30 25-34 pg Mean Corpuscular Hemoglobin Concent 34 32-36 g/dL Red Cell Distribution Width 12.2 10.0-14.5 % Platelet Count 213 130-400 10^3/uL Mean Platelet Volume 10.2 9.0-12.2 fL Immature Granulocyte % (Auto) 0 % Neutrophils (%) (Auto) 73 42-75 % Lymphocytes (%) (Auto) 19 12-44 % Monocytes (%) (Auto) 6 0-12 % Eosinophils (%) (Auto) 1 0-10 % Basophils (%) (Auto) 0 0-10 % Neutrophils # (Auto) 5.1 1.8-7.8 10^3/uL Lymphocytes # (Auto) 1.4 1.0-4.0 10^3/uL Monocytes # (Auto) 0.4 0.0-1.0 10^3/uL Eosinophils # (Auto) 0.1 0.0-0.3 10^3/uL Basophils # (Auto) 0.0 0.0-0.1 10^3/uL Immature Granulocyte # (Auto) 0.0 0.0-0.1 10^3/uL Prothrombin Time 13.6 12.2-14.7 SEC INR Comment 1.0 0.8-1.4 Activated Partial Thromboplast Time 28 24-35 SEC Urine Color YELLOW Urine Clarity CLEAR Urine pH 6.0 5-9 Urine Specific [place]well <=1.005 1.016-1.022 Urine Protein NEGATIVE NEGATIVE Urine Glucose (UA) NEGATIVE NEGATIVE Urine Ketones NEGATIVE NEGATIVE Urine Nitrite NEGATIVE NEGATIVE Urine Bilirubin NEGATIVE NEGATIVE Urine Urobilinogen 0.2 < = 1.0 MG/DL Urine Leukocyte Esterase TRACE H NEGATIVE Urine RBC (Auto) TRACE-I H NEGATIVE Urine RBC NONE /HPF Urine WBC 5-10 H /HPF Urine Squamous Epithelial Cells 5-10 /HPF Urine Crystals NONE /LPF Urine Bacteria TRACE /HPF Urine Casts NONE /LPF Urine Mucus NEGATIVE /LPF Urine Culture Indicated CULTURE PENDING Sodium Level 139 135-145 MMOL/L Potassium Level 3.9 3.6-5.0 MMOL/L Chloride Level 106 98-107 MMOL/L Carbon Dioxide Level 22 21-32 MMOL/L Anion Gap 11 5-14 MMOL/L Blood Urea Nitrogen 10 7-18 MG/DL Creatinine 0.95 0.60-1.30 MG/DL Estimat Glomerular Filtration Rate 61 BUN/Creatinine Ratio 11 Glucose Level 97 70-105 MG/DL Calcium Level 9.3 8.5-10.1 MG/DL Corrected Calcium 9.4 8.5-10.1 MG/DL Magnesium Level 1.9 1.6-2.4 MG/DL Total Bilirubin 0.8 0.1-1.0 MG/DL Aspartate Amino Transf (AST/SGOT) 20 5-34 U/L Alanine Aminotransferase (ALT/SGPT) 12 0-55 U/L Alkaline Phosphatase 113 40-136 U/L Myoglobin 82.6 10.0-92.0 NG/ML Troponin I 0.028 <0.028 NG/ML Total Protein 7.2 6.4-8.2 GM/DL Albumin 3.9 3.2-4.5 GM/DL Thyroid Stimulating Hormone (TSH) 2.55 0.35-4.94 UIU/ML Free Thyroxine 1.13 0.70-1.48 NG/DL Influenza Type A (RT-PCR) Not Detected Not Detecte Influenza Type B (RT-PCR) Not Detected Not Detecte SARS-CoV-2 RNA (RT-PCR) Not Detected Not Detecte Lactic Acid Level 1.22 0.50-2.00 MMOL/L My Orders Orders - ARLETTE LAMBERT MD Magnesium (06/04/22 14:16) Ekg Tracing (06/04/22 14:16) Myoglobin Serum (06/04/22 14:16) Monitor-Rhythm Ecg Trace Only (06/04/22 14:16) Lipid Panel (06/05/22 06:00) Troponin I Cook (06/04/22 14:16) Covid 19 Inhouse Test (06/04/22 14:16) Influenza A And B By Pcr (06/04/22 14:16) Ct Head/Cervical Spine Wo (06/04/22 15:44) Ct Thoracic/Lumbar Spine Wo (06/04/22 15:44) Thyroid Stimulating Hormone (06/04/22 18:35) Free T4 (Free Thyroxine) (06/04/22 18:35) Ceftriaxone 1 Gm Pre-Mix (Rocephin 1 Gm (06/04/22 18:35) Ed Admission (Communication) (06/04/22 18:35) Vital Signs/I&O 06/04/22 13:05 Pulse 63 Resp 17 B/P (MAP) 180/90 (120) Pulse Ox 94 O2 Delivery Room Air Capillary Refill : Less Than 3 Seconds Blood Pressure Mean: 120 Progress Note : Time: 18:48 Progress Note Patient was found to have mild UTI. Work-up was otherwise relatively unremarkable. I discussed the situation with Dr. Araiza. He encouraged CT of the head to ensure there was no evidence of stroke or other intracranial abnormality. Otherwise, from a cardiology perspective, he did not have specific recommendations. CT of the head was obtained. I included imaging of the spine as patient complained of chronic back pain and chronic lower extremity weakness that worsened over the past 24 to 48 [address]. There was no CT evidence of pathology to explain her symptoms. I did get her up and attempted to walk with her. She was able to walk with a short shuffled gait while holding my hands. She stated she could not walk without the support of person or walker. She demonstrated a sinus arrhythmia with rates in the 50s and 60s during her ER stay. She did not describe any shortness of breath or lightheadedness upon standing or walking. She denied chest pain. We discussed CODE STATUS. She expresses desire for full CODE STATUS at this time but would not desire long- term life support should her prognosis be poor. She designates her son, Lionel, as her decision-maker if she were to become incompetent. Case was discussed with Dr. Mancera who accepted admission. ECG Initial ECG Impression Date: Jun 04, 2022 Initial ECG Impression Time: 14:33 Initial ECG Rate: 51 Initial ECG Rhythm: S.Vinicius Comment Mild sinus bradycardia. Rate irregular but remains sinus. Right bundle branch block. No ST elevation or depression. No axis deviation. Diagnostic Imaging Diagonstic Imaging: CT Plain Films/CT/US/NM/MRI: c-spine, head Comments NAME: ERLINDA HUYNH [facility] REC#: [id number] PT STATUS: REG ER : 1940 PHYSICIAN: ARLETTE LAMBERT MD ADMIT DATE: 06/04/22/ER Draft Date of Exam:06/04/22 CT HEAD/CERVICAL SPINE WO CLINICAL INDICATION: Patient complains of weakness and falls. Patient reports she had heart cath done yesterday. Patient has been weak and unable to walk. EXAM: Head CT without IV contrast with sagittal and coronal reformations. Axial CT scan of the cervical spine with sagittal and coronal reformations. Auto Exposure Controls were utilized during the CT exam to meet ALARA standards for radiation dose reduction. COMPARISON: CT scan of the head and neck without contrast dated 12/01/2019. FINDINGS: Head CT: There is no evidence of acute cerebral infarct, intracranial hemorrhage, or gross mass effect. The brain parenchymal volume appears appropriate for patient's age. There are multiple patchy and confluent areas of low-density white matter changes involving both cerebral hemispheres, likely representing chronic small vessel ischemic disease and mild leukoaraiosis. There is normal pradhan-white matter distinction. There is no significant midline shift or herniation. There is no evidence of hydrocephalus. The basal cisterns are unremarkable. The skull, extracranial soft tissue, and orbits are unremarkable. The paranasal sinuses are unremarkable. Temporal bones show no significant abnormality. Cervical spine: There is slightly excessive lordosis of the cervical spine posture. There is no acute cervical spine fracture or dislocation. There are cervical spine vertebral body spurs and facet arthropathy. There is no significant neck soft tissue abnormality. Visualized upper lung butler are clear. IMPRESSION: 1: Age-related brain parenchymal changes with no evidence of acute intracranial process. 2: There is cervical spine degenerative disease with no acute fracture or dislocation. Dictated on workstation # [id number] Dict: 06/04/22 1605 Trans: 06/04/22 1621 [id number] Interpreted by: JUAN GUERRERO MD Reviewed: Reviewed by Va Diagonstic Imaging: CT Plain Films/CT/US/NM/MRI: other (Thoracolumbar spine) Comments NAME: ERLINDA HUYNH [facility] REC#: [id number] PT STATUS: REG ER : 1940 PHYSICIAN: ARLETTE LAMBERT MD ADMIT DATE: 06/04/22/ER Signed Date of Exam:06/04/22 CT THORACIC/LUMBAR SPINE WO PROCEDURE: CT thoracic and lumbar spine without contrast. TECHNIQUE: Multiple contiguous axial images were obtained through the thoracic and lumbar spine without the use of intravenous contrast. Sagittal and coronal reformations were then performed. All CT scans use one or more of the following dose optimizing techniques: automated exposure control, MA and/or KvP adjustment based on patient size and exam type or iterative reconstruction. INDICATION: Weakness. Falls. Mid and lower back pain. COMPARISON: None. FINDINGS: No acute fracture or dislocation is seen in the thoracic or lumbar spine. There is S-shaped curvature of the thoracolumbar spine. Generalized osteopenia is noted. No suspicious focal osseous lesion is seen. No evidence of acute spinal canal stenosis. No evidence of high density material is seen within the spinal canal. The included lungs are clear. Prominent hiatal hernia is seen. The paraspinal soft tissues are unremarkable. IMPRESSION: 1. No acute fracture or dislocation is seen in the thoracic and lumbar spine. 2. Generalized osteopenia. 3. Prominent hiatal hernia. Dictated by: Dictated on workstation # [id number] Dict: 06/04/22 1611 Trans: 06/04/221617 [facility] [id number] Interpreted by: CLINTON OLEARY DO Electronically signed by: CLINTON OLEARY DO 06/04/22 1618 Reviewed: Reviewed by Me Departure Communication (Admissions) Time/Spoke to Admitting Phy: 18:30 Dr. Mancera Impression Primary Impression: Urinary tract infection Qualified Codes: N39.0 - Urinary tract infection, site not specified Additional Impressions: Generalized weakness Sinus arrhythmia Disposition: ADMITTED INPATIENT Condition: Stable Admissions Decision to Admit Reason: Admit from ER (General) Decision to Admit/Date: Jun 04, 2022 Time/Decision to Admit Time: 18:30 Departure-Patient Inst. Referrals: KARO BENNETT MD (PCP/Family) Primary Care Physician ARLETTE LAMBERT MD Jun 04, 2022 18:32
[2022-06-04] MEDS ORDERED: cefTRIAXone 1 GM PRE-MIX 50 ML IV STA (18:35)
[2022-06-04 19:12] LABS: FREE T4 (FREE THYROXINE) 1.13 NG/DL (0.70-1.48)
[2022-06-04 20:00] VITALS: BP 150/80
[2022-06-04] MEDS ORDERED: CALCIUM CARBONATE 500 MG (TUMS) TAB.CHEW PO PRN (20:00)
[2022-06-04] MEDS ORDERED: morphine INJ 4 MG/ML 1 ML (VIAL/SYRINGE) IV PRN (20:00)
[2022-06-04] MEDS ORDERED: diphenhydrAMINE 50 MG/ML INJ (BENADRYL) IVP PRN (20:00)
[2022-06-04] MEDS ORDERED: ONDANSETRON 4 MG/2 ML (SDV) Z0FRAN IV PRN (20:00)
[2022-06-04] MEDS ORDERED: NS IV 1000 ML 1,000 ML IV SCH (20:00)
[2022-06-04] MEDS ORDERED: ACETAMINOPHEN 325 MG TABLET PO PRN (20:00)
[2022-06-04] MEDS ORDERED: polyethylene glycoL POWDER 17 GM (MIRALAX) PACK PO PRN (20:00)
[2022-06-04] MEDS ORDERED: LACTULOSE SYRUP 10GM/15ML (ENULOSE) 30ML UDC PO PRN (20:00)
[2022-06-04] MEDS ORDERED: diphenhydrAMINE 25 MG TAB (BENADRYL) PO PRN (20:00)
[2022-06-04] MEDS ORDERED: MILK OF MAGNESIA 400 MG/5 ML 30 ML UDC PO PRN (20:00)
[2022-06-04] MEDS ORDERED: MELATONIN 3 MG TABLET PO PRN (20:00)
[2022-06-04] MEDS ORDERED: ONDANSETRON 4 MG (ZOFRAN) ORAL DISSOLVE TAB PO PRN (20:00)
[2022-06-04] MEDS ORDERED: BISACODYL 10 MG SUPP (DULCOLAX) PR PRN (20:00)
[2022-06-04] MEDS ORDERED: ANTACID SUSP 30 ML UDC (MYLANTA) PO PRN (20:00)
[2022-06-04] MEDS ORDERED: morphine IMMEDIATE RELEASE 15 MG TABLET PO PRN (20:00)
[2022-06-04 20:33] VITALS: BP 180/90
[2022-06-04] MEDS ORDERED: RT-ALBUTEROL SULF 2.5 MG/3 ML PRE-MIX VIAL INH PRN (20:45)
[2022-06-04] MEDS ORDERED: cloNIDine 0.1 MG (CATAPRES) TAB PO PRN (21:30)
[2022-06-04] MEDS: DOCUSATE SODIUM 100 MG (COLACE) CAP PO SCH (23:06)
[2022-06-04] MEDS: SENNOSIDES 8.6 MG (SENOKOT) TAB PO SCH (23:06)
[2022-06-04] MEDS: ENOXAPARIN 40 MG/0.4 ML (LOVENOX) SYR SC SCH (23:06)
[2022-06-05] VITALS: BP 129/64
[2022-06-05 04:25] VITALS: BP 141/60
[2022-06-05] MEDS: LEVOTHYROXINE 75 MCG (LEVOTHROID) TABLET PO SCH (06:13)
[2022-06-05 06:17] LABS: BASOPHILS % (AUTO) 1 % (0-10); EOSINOPHILS # (AUTO) 0.1 10^3/uL (0.0-0.3); EOSINOPHILS % (AUTO) 3 % (0-10); HEMATOCRIT 40 % (35-52); HEMOGLOBIN 13.5 g/dL (11.5-16.0); LYMPHOCYTES # (AUTO) 1.3 10^3/uL (1.0-4.0); LYMPHOCYTES % (AUTO) 23 % (12-44); MEAN CORPUSCULAR HEMOGLOBIN 30 pg (25-34); MEAN CORPUSCULAR HGB CONC 34 g/dL (32-36); MEAN CORPUSCULAR VOLUME 90 fL (80-99); MEAN PLATELET VOLUME 10.6 fL (9.0-12.2); MONOCYTES # (AUTO) 0.4 10^3/uL (0.0-1.0); MONOCYTES % (AUTO) 8 % (0-12); NEUTROPHILS # (AUTO) 3.6 10^3/uL (1.8-7.8); NEUTROPHILS % (AUTO) 66 % (42-75); PLATELET COUNT 195 10^3/uL (130-400); WHITE BLOOD COUNT 5.4 10^3/uL (4.3-11.0)
[2022-06-05 06:27] LABS: ALBUMIN 3.2 GM/DL (3.2-4.5)
[2022-06-05 06:28] LABS: POTASSIUM 3.7 MMOL/L (3.6-5.0)
[2022-06-05 06:29] LABS: CALCIUM 8.6 MG/DL (8.5-10.1); TRIGLYCERIDES 71 MG/DL (<150); VLDL CHOLESTEROL 14 MG/DL (5-40)
[2022-06-05 06:30] LABS: TOTAL PROTEIN 5.9 GM/DL (6.4-8.2)
--- NOTE | 2022-06-05 06:31 | History & Physical ---
History of Present Illness HPI/Chief Complaint Chief complaint: Severe weakness unable to ambulate History of present illness: This is an 81-year-old female who presented to the ER with inability to walk with a recent fall. The decision was made to admit for observation for PT and OT and supportive care. She reports she does have spinal stenosis and that could be a factor with her weakness. She does feel better but wants 1 more day and will discharge tomorrow. Source: patient Exam Limitations: no limitations Date Seen 06/05/22 Time Seen by a Provider: 11:00 Attending Physician Karo Bennett MD PCP Admitting Physician: Hallie Mancera DO Attending Physician: Hallie Mancera DO Referring Physician Date of Admission Jun 04, 2022 at 18:37 Home Medications & Allergies Home Medications Reviewed patient Home Medication Reconciliation performed by pharmacy medication reconciliations chemical radiation technician and/or nursing. Patients Allergies have been reviewed. Allergies Allergies Coded Allergies No Known Drug Allergies (Unverified06/03/22) Past Lvdvdkv-Mgfdtd-Eevqjc Hx Past Med/Social Hx: Reviewed Nursing Past Med/Soc Hx, Reviewed and Corrections made Patient Social History Marrital Status: single Employed/Student: retired Smoking Status: Never a Smoker 2nd Hand Smoke Exposure: No Recent Foreign Travel: No Recent Hopitalizations: No Recent Infectious Disease Expo: No Immunizations Up To Date Date of Pneumonia Vaccine: Apr 12, 2012 Seasonal Allergies Seasonal Allergies: No Past Medical History Surgeries: Gallbladder, Hysterectomy Cardiac: Coronary Artery Disease, High Cholesterol, Hypertension Gastrointestinal: Gastroesophageal Reflux, Diverticulosis Musculoskeletal: Arthritis, Back Injury, Chronic Back Pain Endocrine: Hypothyroidsim HEENT: Double Vision History of Blood Disorders: No Review of Systems Constitutional: see HPI, malaise, weakness Musculoskeletal: back pain, joint pain Physical Exam Physical Exam Vital Signs Vital Signs - First Documented 06/04/22 06/04/22 06/04/22 13:05 20:00 20:33 Temp 36.7 Pulse 63 Resp 17 B/P (MAP) 180/90 (120) Pulse Ox 94 O2 Delivery Room Air FiO2 21 Capillary Refill : Less Than 3 Seconds Height, Weight, BMI Height: '" Weight: lbs. oz. kg; 28.30 BMI Method: General Appearance: No Apparent Distress, WD/WN Eyes: Bilateral Eye Normal Inspection, Bilateral Eye PERRL HEENT: PERRL/EOMI, TMs Normal, Normal ENT Inspection, Pharynx Normal Neck: Full Range of Motion, Normal Inspection, Non Tender, Supple, Carotid Bruit Respiratory: Chest Non Tender, Lungs Clear, Normal Breath Sounds, No Accessory Muscle Use, No Respiratory Distress Cardiovascular: Regular Rate, Rhythm, No Edema, No Gallop, No JVD, No Murmur, Normal Peripheral Pulses Gastrointestinal: Normal Bowel Sounds, No Organomegaly, No Pulsatile Mass, Non Tender, Soft Back: Normal Inspection, No CVA Tenderness, No Vertebral Tenderness Extremity: Normal Capillary Refill, Normal Inspection, Normal Range of Motion, Non Tender, No Calf Tenderness, No Pedal Edema Neurologic/Psychiatric: Alert, Oriented x3, No Motor/Sensory Deficits, Normal Mood/Affect Skin: Normal Color, Warm/Dry Lymphatic: No Adenopathy Results Results/Procedures Labs Laboratory Tests 06/04/22 14:30 06/05/22 05:39 Patient resulted labs reviewed. Assessment/Plan Admission Diagnosis Assessment: Severe weakness Recent fall Spinal stenosis Hypothyroidism Plan: Hep-Lock IV fluid Supportive care Admission Status: Observation HALLIE MANCERA DO Jun 05, 2022 06:31
[2022-06-05 06:32] LABS: BILIRUBIN,TOTAL 0.6 MG/DL (0.1-1.0)
[2022-06-05 06:34] LABS: CHOLESTEROL 121 MG/DL (< 200); CREATININE SERUM 0.91 MG/DL (0.60-1.30)
[2022-06-05 06:35] LABS: HDL CHOLESTEROL 44 MG/DL (40-60)
[2022-06-05 07:43] VITALS: BP_SYST 162; BP_SYST 192; BP_DIAS 79
[2022-06-05] MEDS: amLODIPine 2.5MG (NORVASC) TAB PO SCH (08:40)
[2022-06-05] MEDS: SENNOSIDES 8.6 MG (SENOKOT) TAB PO SCH ×2 (08:40→20:56)
[2022-06-05] MEDS: PANTOPRAZOLE 40 MG (PROTONIX) TAB PO SCH (08:40)
[2022-06-05] MEDS: DOCUSATE SODIUM 100 MG (COLACE) CAP PO SCH ×2 (08:40→20:56)
[2022-06-05] MEDS: meTOproloL SUCCINATE 50 MG (TOPROL XL) TAB PO SCH (08:40)
--- NOTE | 2022-06-05 10:00 | Physical Therapy Evaluation ---
PT Evaluation-General Medical Diagnosis Admission Date Jun 04, 2022 at 18:37 Medical Diagnosis: UTI, Weakness, Falls Onset Date: Jun 04, 2022 Therapy Diagnosis Therapy Diagnosis: Gait deficit, strength deficit Precautions Precautions/Isolations: Suicide Weight Bear Status Right Lower Extremity: Right Full Weight Bearing Left Lower Extremity: Left Full Weight Bearing Referral Physician: Dr. Mancera Reason for Referral: Evaluation/Treatment Medical History Reviewed History: Yes Social History Home: Single Level Current Living Status: Alone Entry Into Home: Stairs With Railing PT Steps Into Home: 2 Prior Prior Level of Function SCALE: Activities may be completed with or without assistive devices. 7-Fhscvczjea-zntkhew completes the activity by him/herself with no assistance from a helper. 5-Set-up or Clean-up Assistance-helper sets up or cleans up; patient completes activity. Sharon assists only prior to or following the activity. 4-Supervision or Touching Assistance-helper provides verbal cues and/or touching/steadying and/or contact guard assistance as patient completes activity. Assistance may be provided throughout the activity or intermittently. 3-Partial/Moderate Assistance-helper does LESS THAN HALF the effort. Sharon lifts, holds or supports trunk or limbs, but provides less than half the effort. 2-Substantial/Maximal Assistance-helper does MORE THAN HALF the effort. Sharon lifts or holds trunk or limbs and provides more than half the effort. 2-Qmfqzolbn-rqqjif does ALL the effort. Patient does none of the effort to complete the activity. Or, the assistance of 2 or more helpers is required for the patient to complete the activity. If activity was not attempted, code reason: 7-Patient Refused. 9-Not Applicable-not attempted and the patient did not perform the activity before the current illness, exacerbation or injury. 10-Not Attempted due to Environmental Limitations-(lack of equipment, weather restraints, etc.). 88-Not Attempted due to Medical Conditions or Safety Concerns. Bed Mobility: 6 Transfers (B,C,W/C): 6 Gait: 6 Stairs: 6 Indoor Mobility (Ambulation): Independent Stairs: Independent Prior Devices Use: Walker Reports her son lives 5 houses from her. PT Evaluation-Current Subjective Patient sitting at edge of bed finishing breakfast upon PT arrival, agreeable to treatment. Patient rates pain currently at 0/10 Objective Patient Orientation: Person, Place, Time, Situation Attachments: IV ROM/Strength ROM Lower Extremities WFLs bilaterally Strength Lower Extremities 4/5 bilaterally all planes Sensory Vision: Functional Hearing: Functional Sensation Right Lower Extremit: Intact Sensation Left Lower Extremity: Intact Transfers Roll Left to Right (QC): 6 Sit to Lying (QC): 6 Lying to Sitting/Side of Bed(Q: 6 Sit to Stand (QC): 4 Chair/Cfi-ze-Gcvrz Xfer(QC): 4 Gait Does the Patient Walk?: Yes Mode of Locomotion: Walk Anticipated Mode of Locomotion: Walk Walk 10 feet (QC): 4 Walk 50 ft with 2 Turns(QC): 4 Walk 150 ft (QC): 4 Distance: 200 feet Gait Assistive Device: FWW Balance Sitting Static: Normal Sitting Dynamic: Normal Standing Static: Good Standing Dynamic: Fair Assessment/Needs Patient tolerated treatment well. Demonstrates independence with all observed bed mobility and SBA with transfers. Patient ambulates 200 feet with FWW, with SBA and verbal cues for safety, progression, balance and conservation of energy. Rehab Potential: Good PT Fpc Goals Mill Tender Washing Goals PT Mill Tender Washing Goals Time Frame: Jun 19, 2022 Roll Left & Right (QC): 6 Sit to Lying (QC): 6 Lying-Sitting on Side/Bed(QC): 6 Sit to Stand (QC): 6 Chair/Bir-db-Pfhnw Xfer(QC): 6 Toilet Transfer (QC): 6 Car Transfer (QC): 6 Does the Patient Walk: Yes Walk 10 feet (QC): 6 Walk 50ft with 2 Turns (QC): 6 Walk 150 ft (QC): 6 1 Step (curb) (QC): 4 4 Steps (QC): 4 PT Plan Problem List Problem List: Activity Tolerance, Functional Strength, Safety, Balance, Gait, Transfer, Bed Mobility, ROM Treatment/Plan Treatment Plan: Continue Plan of Care Treatment Plan: Bed Mobility, Education, Functional Activity [place]on, Functional Strength, Group Therapy, Gait, Safety, Therapeutic Exercise, Transfers Treatment Duration: Jul 03, 2022 Frequency: 6 times per week Estimated Hrs Per Day: .25 hour per day Patient and/or Family Agrees t: Yes Safety Risks/Education Patient Education: Gait Training, Transfer Techniques Teaching Recipient: Patient Teaching Methods: Demonstration, Discussion Response to Teaching: Verbalize Understanding, Return Demonstration Time/GCodes Time In: 932 Time Out: 958 Total Billed Treatment Time: 25 Total Billed Treatment Visit, Lamont RESTREPO JOHN A PT Jun 05, 2022 10:00
[2022-06-05 11:26] VITALS: BP 117/65
[2022-06-05 15:45] VITALS: BP 142/69
[2022-06-05 20:23] VITALS: BP 153/84
[2022-06-05] MEDS: ENOXAPARIN 40 MG/0.4 ML (LOVENOX) SYR SC SCH (20:57)
[2022-06-06] VITALS: BP 169/72
[2022-06-06 04:09] VITALS: BP 139/84
[2022-06-06 05:39] LABS: BASOPHILS % (AUTO) 1 % (0-10); EOSINOPHILS # (AUTO) 0.2 10^3/uL (0.0-0.3); EOSINOPHILS % (AUTO) 4 % (0-10); HEMATOCRIT 42 % (35-52); HEMOGLOBIN 13.9 g/dL (11.5-16.0); LYMPHOCYTES # (AUTO) 1.5 10^3/uL (1.0-4.0); LYMPHOCYTES % (AUTO) 26 % (12-44); MEAN CORPUSCULAR HEMOGLOBIN 30 pg (25-34); MEAN CORPUSCULAR HGB CONC 34 g/dL (32-36); MEAN CORPUSCULAR VOLUME 90 fL (80-99); MEAN PLATELET VOLUME 10.6 fL (9.0-12.2); MONOCYTES # (AUTO) 0.5 10^3/uL (0.0-1.0); MONOCYTES % (AUTO) 9 % (0-12); NEUTROPHILS # (AUTO) 3.4 10^3/uL (1.8-7.8); NEUTROPHILS % (AUTO) 60 % (42-75); PLATELET COUNT 173 10^3/uL (130-400); WHITE BLOOD COUNT 5.7 10^3/uL (4.3-11.0)
[2022-06-06] MEDS: LEVOTHYROXINE 75 MCG (LEVOTHROID) TABLET PO SCH (05:42)
[2022-06-06 05:55] LABS: ALBUMIN 3.4 GM/DL (3.2-4.5)
[2022-06-06 05:56] LABS: POTASSIUM 3.9 MMOL/L (3.6-5.0)
[2022-06-06 05:57] LABS: CALCIUM 8.8 MG/DL (8.5-10.1)
[2022-06-06 05:58] LABS: TOTAL PROTEIN 6.2 GM/DL (6.4-8.2)
[2022-06-06 06:00] LABS: BILIRUBIN,TOTAL 0.7 MG/DL (0.1-1.0)
[2022-06-06 06:02] LABS: CREATININE SERUM 0.96 MG/DL (0.60-1.30)
[2022-06-06 07:30] VITALS: BP 143/81
[2022-06-06] MEDS: amLODIPine 2.5MG (NORVASC) TAB PO SCH (08:29)
[2022-06-06] MEDS: PANTOPRAZOLE 40 MG (PROTONIX) TAB PO SCH (08:29)
[2022-06-06] MEDS: meTOproloL SUCCINATE 50 MG (TOPROL XL) TAB PO SCH (08:29)
[2022-06-06] MEDS: DOCUSATE SODIUM 100 MG (COLACE) CAP PO SCH (08:32)
[2022-06-06] MEDS: SENNOSIDES 8.6 MG (SENOKOT) TAB PO SCH (08:32)
[2022-06-06 11:24] VITALS: BP 111/72
--- NOTE | 2022-06-06 11:59 | D/C HH Face to Face Order ---
D/C Face to Face Orders Reconcile Patient Problems Problems Reviewed?: Yes Instructions for Patient Soraya Patient Instructions/FollowUp: PCP 1 week Physician to follow Patient: Sabrina Discharge Diet for Home: No Restrictions Patient Problems: Weakness Patient Data-Allergies,Ht & Wt Patient Allergies: Coded Allergies: No Known Drug Allergies (Unverified , 06/03/22) Home Health Need/Face to Face Date of Face to Face: Jun 06, 2022 Clinical Findings: Generalized weakness and fatigue, Instability, Muscle weakness I have seen Pt [id number]: Yes Discharged To: Home Diagnosis/Conditions: Debility Patient is Homebound due to: Dami fall risk due to instabilty, Muscle weakness Homebound Status Due to the above stated illness, injury or surgical procedure (medical condition or diagnosis) and associated clinical findings, the patient is homebound because of his/her inability to leave home except with aid of a supportive device and/or person AND leaving the home requires a considerable and taxing effort or is medically contraindicated. Pt req the following assistanc: Walker Home Health Nursing Orders Home Health Services Order: Nursing Services, Marine Railway Operator-Evaluate & Treat, Physical Therapy-Evaluate & Treat, Other (bath aide) Home Health Infusion Therapy Line Start Date: Jun 04, 2022 Certify Stmt I certify that this patient is under my care and that I, a nurse practitioner or a physician; a assistant director of plant operations working with me, had a face to face encounter that - meets the physician face to face encounter requirements with this patient as dated. BARRY JACKSON DO Jun 06, 2022 11:59
--- NOTE | 2022-06-06 12:00 | Discharge Summary ---
Discharge Summary Hospital Course Was the Problem List Reviewed?: Yes Problems/Dx: (1) Generalized weakness (2) Multiple falls Hospital Course Date of Admission: Jun 04, 2022 at 18:37 Admission Diagnosis : Family Physician/Provider: Karo Bennett MD Date of Discharge: 06/06/22 Discharge Diagnosis: Generalized weakness Hospital Course: Short hospital course after she was admitted and provided supportive care due to severe weakness after a fall. PT and OT ordered and she did very well with that used a walker and was safe for discharge with family. Labs and Pending Lab Test: Laboratory Tests 06/06/22 05:28: White Blood Count 5.7, Red Blood Count 4.61, Hemoglobin 13.9, Hematocrit 42, M king Corpuscular Volume 90, Mean Corpuscular Hemoglobin 30, Mean Corpuscular Hemoglobin Concent 34, Red Cell Distribution Width 12.2, Platelet Count 173, Mean Platelet Volume 10.6, Immature Granulocyte % (Auto) 0, Neutrophils (%) (Auto) 60, Lymphocytes (%) (Auto) 26, Monocytes (%) (Auto) 9, Eosinophils (%) (Auto) 4, Basophils (%) (Auto) 1, Neutrophils # (Auto) 3.4, Lymphocytes # (Auto) 1.5, Monocytes # (Auto) 0.5, Eosinophils # (Auto) 0.2, Basophils # (Auto) 0.0, Immature Granulocyte # (Auto) 0.0, Sodium Level 140, Potassium Level 3.9, Chloride Level 107, Carbon Dioxide Level 22, Anion Gap 11, Blood Urea Nitrogen 11, Creatinine 0.96, Estimat Glomerular Filtration Rate 60, BUN/Creatinine Ratio 11, Glucose Level 90, Calcium Level 8.8, Corrected Calcium 9.3, Total Bilirubin 0.7, Aspartate Amino Transf (AST/SGOT) 19, Alanine Aminotransferase (ALT/SGPT) 12, Alkaline Phosphatase 91, Total Protein 6.2L, Albumin 3.4 Microbiology 06/04/22 Blood Culture - Preliminary, Resulted No growth 06/04/22 Urine Culture - Final, Complete Gram Pos Mixed Bacterial Jennifer Home Meds Active Reported Rosuvastatin Calcium 5 Mg Tablet 5 Mg PO DAILY Visine Dry Eye Relief (Polyethylene Glycol 400) 1 % Drops 1 Drop OU DAILY PRN Tylenol (Acetaminophen) 325 Mg Tablet 650 Mg PO Q6H PRN Multiple Vitamin (Multivitamin with Minerals) 1 Each Tablet 1 Each PO DAILY Levothyroxine (Levothyroxine Sodium) 75 Mcg Capsule 75 Mcg PO DAILY Omeprazole 40 Mg Capsule.dr 40 Mg PO DAILY Amlodipine Besylate 2.5 Mg Tablet 2.5 Mg PO DAILY Metoprolol Succinate 50 Mg Tab.er.24h 50 Mg PO DAILY Assessment/Pt Instructions PCP in 1 week Discharge Planning: <30 minutes discharge planning Discharge Physical Examination Vital Signs Vital Signs Date Time Temp Pulse Resp B/P (MAP) Pulse Ox O2 Delivery O2 Flow Rate FiO2 06/06/22 11:24 36.6 80 18 111/72 (85) 94 Room Air 06/04/22 20:33 21 General Appearance: No Apparent Distress, WD/WN, Chronically ill Respiratory: Lungs Clear, Normal Breath Sounds Cardiovascular: Regular Rate, Rhythm Neurologic/Psychiatric: Alert, Oriented x3 Allergies: Coded Allergies: No Known Drug Allergies (Unverified , 06/03/22) Discharge Summary Date of Admission Jun 04, 2022 at 18:37 Date of Discharge Discharge Date: Jun 06, 2022 Admission Diagnosis Assessment: Severe weakness Recent fall Spinal stenosis Hypothyroidism Plan: Hep-Lock IV fluid Supportive care BARRY JACKSON DO Jun 06, 2022 12:00
[2022-06-06 14:00] VITALS: BP 111/72
== END 2022-06-06 11:57 | disposition home health service (06) ==
LOC: EDUNIT# 12:35 → ER 12:37 → 4TH 18:37 → UNDOADMOB 18:37 → 4TH 19:40 → UNDODISOB 06-06 14:00
PROVIDERS: ADMIT Internal Medicine; ATTEND Internal Medicine
DX: R53.1 Weakness (principal); R29.6 Repeated falls; E03.9 Hypothyroidism, unspecified; Z79.899 Other long term (current) drug therapy
CPT/HCPCS: 70450; 72125; 72128; 72131; 80053 ×3; 80061; 81000; 83605; 83735; 83874; 84439; 84443; 84484; 85025 ×3; 85610; 85730; 87040; 87088; 87636; 93005; 94760; 96372 ×2; 97116; 97162; 99284; G0378; 36415

== ENCOUNTER → 2022-08-06 | Outpatient (CLI) | payer MEDICARE, OTHER | LOC: CARD 12:30 | PROVIDERS: ATTEND Internal Medicine Cardiovascular Disease | DX: I49.3 Ventricular premature depolarization (principal) | CPT/HCPCS: 93225; 93226 ==